=== PATIENT | female | born 1965 | race Caucasian/White ===

== ENCOUNTER 2019-07-03 14:11 | Observation (INO) ==
[2019-07-03] MEDS ORDERED: SODIUM CHLORIDE/NAHCO3/KCL/PEG 4,000 ML SOLN.RECON PO ONE (17:00)
[2019-07-03] MEDS: GlipiZIDE 5 MG TABLET PO SCH (17:31)
[2019-07-03] MEDS: *HR* OxyCODONE/APAP 7.5/325 TABLET PO PRN (17:40)
[2019-07-04 05:10] LABS: Basophils # 0.1 K/mcL (0.0-0.2); Basophils % 0.9 %; Eosinophils # 0.4 K/mcL (0.0-0.6); Eosinophils % 3.6 %; Hematocrit 31.7 % (35.3-44.9); Hemoglobin 9.6 g/dL (11.5-15.4); INR 1.3; Immature Granulocytes % 0.4 % (0-4); Lymphocytes # 1.4 K/mcL (0.6-4.6); Mean Corpuscular HGB Conc 30.3 g/dL (31.6-35.5); Mean Corpuscular Hemoglobin 26.2 pg (28.0-33.3); Mean Corpuscular Volume 86.4 fL (83.0-100.0); Monocytes # 0.7 K/mcL (0.0-1.3); Monocytes % 6.1 %; Neutrophils # 8.9 K/mcL (1.6-8.9); Platelet Count 529 K/mcL (140-400); Prothrombin Time 15.1 Seconds (9.4-12.1); Red Blood Count 3.67 M/mcL (3.82-4.97); Red Cell Distribution Width 19.2 % (11.5-14.5); White Blood Count 11.6 K/mcL (4.3-11.1)
[2019-07-04 05:24] LABS: Alanine Aminotransferase 14 Units/L (7-52); Albumin/Globulin Ratio 0.8 (1.1-2.2); Alkaline Phosphatase 135 Units/L (34-104); Aspartate Amino Transferase 11 Units/L (13-39); BUN/Creatinine Ratio 10 (6-26); Bilirubin,Total 0.4 mg/dL (0.3-1.0); Blood Urea Nitrogen 9 mg/dL (6-20); Calcium 8.7 mg/dL (8.6-10.3); Carbon Dioxide 24 mEq/L (23-29); Chloride 108 mEq/L (98-107); Globulin 3.9 g/dL (2.4-3.5); Glucose 135 mg/dL (70-105); Osmolality,Calculated 293 (280-300); Potassium 3.8 mEq/L (3.5-5.1); Sodium 141 mEq/L (136-145); Total Protein 6.9 g/dL (6.4-8.9); eGFR For African Americans > 60 (> 60); eGFR For Non-African Americans > 60 (> 60)
[2019-07-04] MEDS: *HR* OxyCODONE/APAP 7.5/325 TABLET PO PRN ×2 (08:46→17:11)
[2019-07-04] MEDS: GlipiZIDE 5 MG TABLET PO SCH ×2 (08:47→17:07)
[2019-07-04] MEDS: Loratadine 10 MG TABLET PO SCH (08:47)
[2019-07-04] MEDS: Folic Acid 1 MG TABLET PO SCH (08:47)
[2019-07-04] MEDS: Baclofen 10 MG TABLET PO SCH ×4 (08:47→21:15)
[2019-07-04] MEDS ORDERED: SODIUM CHLORIDE/NAHCO3/KCL/PEG 4,000 ML SOLN.RECON PO ONE (17:00)
[2019-07-05] MEDS: Loratadine 10 MG TABLET PO SCH (09:34)
[2019-07-05] MEDS: GlipiZIDE 5 MG TABLET PO SCH ×2 (09:35→16:55)
[2019-07-05] MEDS: Folic Acid 1 MG TABLET PO SCH (09:35)
[2019-07-05] MEDS: Baclofen 10 MG TABLET PO SCH ×3 (09:35→16:55)
[2019-07-05] MEDS ORDERED: Diltiazem CD (24hr) 240 MG CAPSULE PO SCH (11:00)
[2019-07-05] MEDS ORDERED: Propofol 500 MG/50 ML INFUS..BTL ONE (11:58)
[2019-07-05 14:01] VITALS: BP 131/82
[2019-07-05] MEDS: *HR* OxyCODONE/APAP 7.5/325 TABLET PO PRN (14:07)
== END 2019-07-05 19:21 | disposition home or self-care (01) ==
LOC: 3ANU
PROVIDERS: ADMIT Internal Medicine; ATTEND Internal Medicine
PROC: ENDOCBX (2019-07-05 12:00)
PROC: ENDOEBX (2019-07-05 12:00)

== ENCOUNTER 2019-09-11 15:41 | Inpatient (IN) ==
[2019-09-11] MEDS ORDERED: Acetaminophen 325 MG TABLET PO PRN (17:42)
[2019-09-11] MEDS ORDERED: Ondansetron 4 MG/2 ML VIAL IVP PRN (17:42)
[2019-09-11] MEDS ORDERED: Naloxone 0.4 MG/ML INJ IVP PRN (17:42)
[2019-09-11] MEDS ORDERED: Ipratropium/Albuterol Neb 3 ML IH PRN (17:44)
[2019-09-11] MEDS ORDERED: Dextrose Gel 15 GM/37.5 ML TUBE PO PRN ×2 (17:45)
[2019-09-11] MEDS ORDERED: *HR* Dextrose 50 % in Water (Syg) 50 ML SYRINGE IVP PRN (17:45)
[2019-09-11] MEDS ORDERED: D5% in Water 1,000 ML IVC PRN (17:45)
[2019-09-11] MEDS ORDERED: Azithromycin 500 MG in 0.9 % Sodium Chloride 250 ML IVPB SCH (18:00)
[2019-09-11] MEDS ORDERED: *HR* LORazepam 2 MG/ML VIAL IVP PRN (18:09)
[2019-09-11 18:38] LABS: Albumin 3.3 g/dL (3.5-5.7); Albumin/Globulin Ratio 0.8 (1.1-2.2); Bilirubin,Total 0.2 mg/dL (0.3-1.0); Chol/HDL Ratio 2.8 (0-4.9); Globulin 4.1 g/dL (2.4-3.5); Magnesium 2.3 mg/dL (1.6-2.6); Phosphorous 5.4 mg/dL (2.7-4.5); Potassium 3.8 mEq/L (3.5-5.1); Total Protein 7.4 g/dL (6.4-8.9)
[2019-09-11 18:39] LABS: Basophils # 0.1 K/mcL (0.0-0.2); Basophils % 0.4 %; Eosinophils # 0.3 K/mcL (0.0-0.6); Eosinophils % 1.9 %; Hematocrit 24.5 % (35.3-44.9); Hemoglobin 7.4 g/dL (11.5-15.4); Immature Granulocytes % 0.5 % (0-4); Lymphocytes # 1.9 K/mcL (0.6-4.6); Lymphocytes % 11.2 %; Mean Corpuscular HGB Conc 30.2 g/dL (31.6-35.5); Mean Corpuscular Hemoglobin 26.5 pg (28.0-33.3); Mean Corpuscular Volume 87.8 fL (83.0-100.0); Mean Platelet Volume 8.6 fL (9.4-12.4); Monocytes # 0.6 K/mcL (0.0-1.3); Monocytes % 3.6 %; Neutrophils # 13.6 K/mcL (1.6-8.9); Platelet Count 679 K/mcL (140-400); Red Blood Count 2.79 M/mcL (3.82-4.97); Red Cell Distribution Width 17.6 % (11.5-14.5); Segmented Neutrophils % 82.4 %; White Blood Count 16.5 K/mcL (4.3-11.1)
[2019-09-11 18:46] LABS: Activated Partial Thrombo Time 41.6 Seconds (26.0-36.0); INR 1.4; Prothrombin Time 15.9 Seconds (9.4-12.1)
[2019-09-11 19:04] LABS: Estimated Average Glucose 140 mg/dl
[2019-09-11] MEDS: 0.9 % Sodium Chloride 1,000 ML IVC SCH (20:53)
[2019-09-11] MEDS: Baclofen 10 MG TABLET PO SCH (20:55)
[2019-09-11] MEDS: *HR* OxyCODONE/APAP 7.5/325 TABLET PO PRN (20:55)
[2019-09-12] MEDS: *HR* OxyCODONE/APAP 7.5/325 TABLET PO PRN ×3 (04:29→21:15)
[2019-09-12 05:42] LABS: Bilirubin,Urine Negative (Negative); Blood,Urine Moderate (Negative); Clarity,Urine Turbid (Clear); Color,Urine Yellow (Yellow); Glucose,Urine (UA) Normal (Normal); Ketones,Urine Negative (Negative); Leukocyte Esterase,Urine Large (Negative); Nitrite,Urine Positive (Negative); Protein,Urine 30 mg/dL (Neg-Trace); Specific Gravity,Urine 1.005 (1.010-1.025); Urobilinogen,Urine Normal (Normal)
[2019-09-12 05:44] LABS: Bacteria,Urine Many per hpf (None-Few); Hyaline Casts,Urine Few per lpf (None-Few); RBC,Urine 0-3 per hpf (0-3); Squamous Epithelial Cell,Urine Many per lpf (None-Few); WBC,Urine TNTC per hpf (0-3)
[2019-09-12] MEDS ORDERED: Ampicillin/Sulbactam 1,500 MG in 0.9 % Sodium Chloride Mini Bag 100 ML IVPB SCH (07:26)
[2019-09-12 08:11] LABS: Basophils # 0.1 K/mcL (0.0-0.2); Basophils % 0.6 %; Eosinophils # 0.3 K/mcL (0.0-0.6); Eosinophils % 2.8 %; Hematocrit 23.7 % (35.3-44.9); Immature Granulocytes % 0.5 % (0-4); Lymphocytes # 2.9 K/mcL (0.6-4.6); Lymphocytes % 23.8 %; Mean Corpuscular HGB Conc 29.5 g/dL (31.6-35.5); Mean Corpuscular Hemoglobin 26.3 pg (28.0-33.3); Mean Corpuscular Volume 89.1 fL (83.0-100.0); Mean Platelet Volume 8.4 fL (9.4-12.4); Monocytes # 0.6 K/mcL (0.0-1.3); Monocytes % 4.6 %; Neutrophils # 8.3 K/mcL (1.6-8.9); Platelet Count 607 K/mcL (140-400); Red Blood Count 2.66 M/mcL (3.82-4.97); Red Cell Distribution Width 17.7 % (11.5-14.5); Segmented Neutrophils % 67.7 %; White Blood Count 12.3 K/mcL (4.3-11.1)
[2019-09-12] MEDS: Topiramate 25 MG TABLET PO SCH (08:26)
[2019-09-12] MEDS: Baclofen 10 MG TABLET PO SCH ×4 (08:26→22:08)
[2019-09-12] MEDS: Insulin LISPRO 300 UNITS/3 ML VIAL SQ SCH ×3 (08:27→19:35)
[2019-09-12] MEDS: DilTIAZem CD (24hr) 240 MG CAP.ER.24H PO SCH (08:27)
[2019-09-12 08:30] LABS: Calcium 8.5 mg/dL (8.6-10.3); Magnesium 2.2 mg/dL (1.6-2.6); Potassium 3.7 mEq/L (3.5-5.1)
[2019-09-12] MEDS ORDERED: cefTRIAXone 1,000 MG in Water for inj. (sterile) 10 ML IVP SCH (09:00)
[2019-09-12] MEDS ORDERED: Sennosides/Docusate Sodium TABLET PO PRN (12:19)
[2019-09-12] MEDS: 0.9 % Sodium Chloride 1,000 ML IVC SCH (13:22)
[2019-09-12 14:57] LABS: Hematocrit 25.2 % (35.3-44.9); Hemoglobin 7.6 g/dL (11.5-15.4)
[2019-09-12 15:25] LABS: Potassium,Urine 23.9 mEq/L; Sodium, Urine 67.8 mEq/L
[2019-09-12 15:33] LABS: Bilirubin,Urine Negative (Negative); Blood,Urine Large (Negative); Clarity,Urine Turbid (Clear); Color,Urine Yellow (Yellow); Glucose,Urine (UA) 100 mg/dL (Normal); Ketones,Urine Negative (Negative); Leukocyte Esterase,Urine Large (Negative); Nitrite,Urine Positive (Negative); Protein,Urine 100 mg/dL (Neg-Trace); Specific Gravity,Urine 1.014 (1.010-1.025); Urobilinogen,Urine Normal (Normal)
[2019-09-12 15:35] LABS: Bacteria,Urine Many per hpf (None-Few); RBC,Urine 30-50 per hpf (0-3); Squamous Epithelial Cell,Urine Many per lpf (None-Few); WBC,Urine TNTC per hpf (0-3)
[2019-09-12] MEDS ORDERED: *HR* Rivaroxaban 15 MG TABLET PO SCH (17:00)
[2019-09-12 17:16] LABS: Adenovirus Not Detected (Not Detect); Bordetella Pertussis Not Detected (Not Detect); Chlamydophila pneumoniae Not Detected (Not Detect); Coronavirus 229E Not Detected (Not Detect); Coronavirus HKU1 Not Detected (Not Detect); Coronavirus NL63 Not Detected (Not Detect); Coronavirus OC43 Not Detected (Not Detect); Human Metapneumovirus Not Detected (Not Detect); Human Rhinovirus/Enterovirus Not Detected (Not Detect); Influenza A Subtype 2009 H1 Not Detected (Not Detect); Influenza B Not Detected (Not Detect); Mycoplasma pneumoniae Not Detected (Not Detect); Parainfluenza Virus 1 Not Detected (Not Detect); Parainfluenza Virus 2 Not Detected (Not Detect); Parainfluenza Virus 3 Not Detected (Not Detect); Parainfluenza Virus 4 Not Detected (Not Detect); Respiratory Syncytial Virus Not Detected (Not Detect)
[2019-09-12] MEDS ORDERED: Insulin DETEMIR 100 UNIT/ML X5UNITS SQ SCH (21:00)
[2019-09-12 21:38] LABS: Hematocrit 25.4 % (35.3-44.9); Hemoglobin 7.7 g/dL (11.5-15.4)
[2019-09-12] MEDS: Benzonatate 100 MG CAPSULE PO SCH (22:09)
[2019-09-13 08:31] LABS: Red Cell Distribution Width 17.4 % (11.5-14.5)
[2019-09-13 08:33] LABS: Basophils # 0.1 K/mcL (0.0-0.2); Basophils % 0.7 %; Eosinophils # 0.1 K/mcL (0.0-0.6); Hematocrit 26.1 % (35.3-44.9); Hemoglobin 7.5 g/dL (11.5-15.4); Immature Granulocytes % 0.7 % (0-4); Lymphocytes % 9.5 %; Mean Corpuscular HGB Conc 28.7 g/dL (31.6-35.5); Mean Corpuscular Hemoglobin 26.8 pg (28.0-33.3); Mean Corpuscular Volume 93.2 fL (83.0-100.0); Mean Platelet Volume 8.4 fL (9.4-12.4); Monocytes # 0.2 K/mcL (0.0-1.3); Monocytes % 2.3 %; Platelet Count 539 K/mcL (140-400); Segmented Neutrophils % 85.8 %; White Blood Count 10.5 K/mcL (4.3-11.1)
[2019-09-13 08:48] LABS: Hypochromasia Present (Not Present)
[2019-09-13] MEDS: Baclofen 10 MG TABLET PO SCH ×3 (08:53→20:29)
[2019-09-13] MEDS: Topiramate 25 MG TABLET PO SCH (08:54)
[2019-09-13] MEDS: Insulin LISPRO 300 UNITS/3 ML VIAL SQ SCH ×2 (08:54→09:06)
[2019-09-13] MEDS: Benzonatate 100 MG CAPSULE PO SCH (08:54)
[2019-09-13] MEDS: DilTIAZem CD (24hr) 240 MG CAP.ER.24H PO SCH (08:54)
[2019-09-13] MEDS ORDERED: Folic Acid 1 MG TABLET PO SCH (09:00)
[2019-09-13] MEDS ORDERED: cefTRIAXone 1,000 MG in Water for inj. (sterile) 10 ML IVP SCH (09:00)
[2019-09-13] MEDS ORDERED: *HR* OxyCODONE/APAP 7.5/325 TABLET PO PRN ×2 (09:15→14:24)
[2019-09-13 09:19] LABS: Potassium 3.5 mEq/L (3.5-5.1)
[2019-09-13] MEDS ORDERED: *HR* LORazepam 2 MG/ML VIAL IM STA (10:31)
[2019-09-13] MEDS ORDERED: levETIRAcetam 1,000 MG in 0.9 % Sodium Chloride 100 ML IVPB ONE (10:32)
[2019-09-13] MEDS ORDERED: D5% in Lactated Ringers 1,000 ML IVC SCH ×3 (10:45→17:10)
[2019-09-13] MEDS ORDERED: D5% in 0.9% NACL 1,000 ML IVC SCH (10:45)
[2019-09-13] MEDS ORDERED: Insulin LISPRO 300 UNITS/3 ML VIAL SQ SCH ×2 (10:45→18:00)
[2019-09-13] MEDS ORDERED: Pantoprazole 40 MG VIAL IVP SCH (11:12)
[2019-09-13] MEDS ORDERED: 0.9 % Sodium Chloride 250 ML IVC SCH ×3 (11:15→17:15)
[2019-09-13 11:43] LABS: ABG Base Excess -1 mEq/L (-2 to 3); ABG HCO3 23 mEq/L (21-27); ABG Oxygen Saturation 98 % (95-98); ABG PCO2 33 mmHg (35-45); ABG PH 7.44 pH Units (7.32-7.45); ABG PO2 93 mmHg (85-104); ABG TCO2 24 mEq/L (20-26)
[2019-09-13] MEDS ORDERED: Ondansetron 4 MG/2 ML VIAL ONE ×2 (11:49→11:54)
[2019-09-13] MEDS ORDERED: Lidocaine -MPF 2% 2 ML VIAL ONE (11:49)
[2019-09-13] MEDS ORDERED: *HR* FentaNYL (PF) 100 MCG/2 ML VIAL ONE (11:49)
[2019-09-13] MEDS ORDERED: *HR* Rocuronium Bromide 50 MG/5 ML VIAL ONE (11:49)
[2019-09-13] MEDS ORDERED: *HR* Propofol 200 MG/20 ML VIAL IVP ONE (11:49)
[2019-09-13] MEDS ORDERED: Dexamethasone 4 MG/ML VIAL ONE (11:54)
[2019-09-13] MEDS ORDERED: Isovue-300 50ML VIAL ONE ×2 (12:33→12:49)
[2019-09-13] MEDS ORDERED: Benzonatate 100 MG CAPSULE PO PRN (14:42)
[2019-09-13] MEDS ORDERED: Sennosides/Docusate Sodium TABLET PO PRN (15:30)
[2019-09-13] MEDS ORDERED: Naloxone 0.4 MG/ML INJ IVP PRN (15:30)
[2019-09-13] MEDS ORDERED: Acetaminophen 325 MG TABLET PO PRN (15:30)
[2019-09-13] MEDS ORDERED: *HR* LORazepam 2 MG/ML VIAL IVP PRN (15:30)
[2019-09-13] MEDS ORDERED: Dextrose Gel 15 GM/37.5 ML TUBE PO PRN ×2 (15:30)
[2019-09-13] MEDS ORDERED: Ipratropium/Albuterol Neb 3 ML IH PRN (15:30)
[2019-09-13] MEDS ORDERED: Ondansetron 4 MG/2 ML VIAL IVP PRN (15:30)
[2019-09-13] MEDS ORDERED: D5% in Water 1,000 ML IVC PRN (15:30)
[2019-09-13] MEDS ORDERED: *HR* Dextrose 50 % in Water (Syg) 50 ML SYRINGE IVP PRN (15:30)
[2019-09-13 16:39] LABS: Basophils # 0.1 K/mcL (0.0-0.2); Basophils % 0.4 %; Eosinophils # 0.3 K/mcL (0.0-0.6); Eosinophils % 2.1 %; Hemoglobin 6.7 g/dL (11.5-15.4); Immature Granulocytes % 0.3 % (0-4); Lymphocytes # 1.8 K/mcL (0.6-4.6); Lymphocytes % 15.3 %; Mean Corpuscular HGB Conc 29.1 g/dL (31.6-35.5); Mean Corpuscular Hemoglobin 26.9 pg (28.0-33.3); Mean Corpuscular Volume 92.4 fL (83.0-100.0); Mean Platelet Volume 8.8 fL (9.4-12.4); Monocytes # 0.4 K/mcL (0.0-1.3); Monocytes % 3.6 %; Neutrophils # 9.1 K/mcL (1.6-8.9); Platelet Count 524 K/mcL (140-400); Red Blood Count 2.49 M/mcL (3.82-4.97); Red Cell Distribution Width 17.2 % (11.5-14.5); Segmented Neutrophils % 78.3 %; White Blood Count 11.7 K/mcL (4.3-11.1)
[2019-09-13 16:45] LABS: INR 1.3; Prothrombin Time 15.2 Seconds (9.4-12.1)
[2019-09-13] MEDS ORDERED: SODIUM CHLORIDE/NAHCO3/KCL/PEG 4,000 ML SOLN.RECON PO ONE (17:07)
[2019-09-13] MEDS ORDERED: 0.9 % Sodium Chloride 250 ML ONE (18:07)
[2019-09-13 19:03] LABS: ABG Base Excess 0 mEq/L (-2 to 3); ABG HCO3 24 mEq/L (21-27); ABG Oxygen Saturation 97 % (95-98); ABG PCO2 35 mmHg (35-45); ABG PH 7.44 pH Units (7.32-7.45); ABG PO2 87 mmHg (85-104); ABG TCO2 25 mEq/L (20-26)
[2019-09-13] MEDS: Pantoprazole 40 MG VIAL IVP SCH (20:12)
[2019-09-13] MEDS ORDERED: Insulin DETEMIR 100 UNIT/ML X5UNITS SQ SCH (21:00)
[2019-09-13 21:31] LABS: Hematocrit 28.1 % (35.3-44.9); Hemoglobin 8.8 g/dL (11.5-15.4)
[2019-09-14] MEDS ORDERED: Acetaminophen IV 1,000 MG/100 ML INFUS..BTL IVPB ONE (03:17)
[2019-09-14] MEDS ORDERED: *HR* LORazepam 2 MG/ML VIAL IVP STA (06:03)
[2019-09-14] MEDS ORDERED: *HR* LORazepam 2 MG/ML VIAL IVP ONE ×2 (06:06→06:34)
[2019-09-14 06:19] LABS: Hematocrit 31.6 % (35.3-44.9)
[2019-09-14] MEDS: Pantoprazole 40 MG VIAL IVP SCH (06:30)
[2019-09-14] MEDS ORDERED: levETIRAcetam 1,000 MG in 0.9 % Sodium Chloride 100 ML IVPB ONE (08:32)
[2019-09-14] MEDS ORDERED: DilTIAZem CD (24hr) 240 MG CAP.ER.24H PO SCH (09:00)
[2019-09-14] MEDS ORDERED: Topiramate 25 MG TABLET PO SCH (09:00)
[2019-09-14] MEDS ORDERED: cefTRIAXone 1,000 MG in 0.9 % Sodium Chloride Mini Bag 100 ML IVPB SCH (09:00)
[2019-09-14] MEDS ORDERED: Folic Acid 1 MG TABLET PO SCH (09:00)
[2019-09-14] MEDS ORDERED: Ringers Solution, Lactated 1,000 ML ONE (09:09)
[2019-09-14] MEDS ORDERED: Artificial Tears SOLN 15 ML BOTTLE BOTH EYES PRN (09:31)
[2019-09-14 09:33] LABS: Basophils # 0.1 K/mcL (0.0-0.2); Basophils % 0.7 %; Eosinophils # 0.3 K/mcL (0.0-0.6); Eosinophils % 2.3 %; Hemoglobin 9.9 g/dL (11.5-15.4); Immature Granulocytes % 0.5 % (0-4); Lymphocytes # 1.8 K/mcL (0.6-4.6); Lymphocytes % 15.2 %; Mean Corpuscular HGB Conc 31.9 g/dL (31.6-35.5); Mean Corpuscular Hemoglobin 27.8 pg (28.0-33.3); Mean Corpuscular Volume 87.1 fL (83.0-100.0); Mean Platelet Volume 8.4 fL (9.4-12.4); Monocytes # 0.5 K/mcL (0.0-1.3); Monocytes % 4.3 %; Neutrophils # 9.2 K/mcL (1.6-8.9); Platelet Count 553 K/mcL (140-400); Red Blood Count 3.56 M/mcL (3.82-4.97); Red Cell Distribution Width 16.7 % (11.5-14.5)
[2019-09-14 09:38] LABS: INR 1.3; Prothrombin Time 14.8 Seconds (9.4-12.1)
[2019-09-14 09:45] LABS: Albumin 3.2 g/dL (3.5-5.7); Albumin/Globulin Ratio 0.8 (1.1-2.2); Bilirubin,Total 0.4 mg/dL (0.3-1.0); Calcium 9.1 mg/dL (8.6-10.3); Globulin 4.2 g/dL (2.4-3.5); Magnesium 2.2 mg/dL (1.6-2.6); Potassium 3.4 mEq/L (3.5-5.1); Total Protein 7.4 g/dL (6.4-8.9)
[2019-09-14 10:35] LABS: ABG Base Excess 0 mEq/L (-2 to 3); ABG HCO3 23 mEq/L (21-27); ABG Oxygen Saturation 100 % (95-98); ABG PCO2 30 mmHg (35-45); ABG PO2 178 mmHg (85-104); ABG TCO2 24 mEq/L (20-26); Blood Gas Modality AF; Blood Gas VT 450 cc
[2019-09-14] MEDS ORDERED: Artificial Tears SOLN 15 ML BOTTLE BOTH EYES SCH (12:00)
[2019-09-14] MEDS ORDERED: Ipratropium/Albuterol Neb 3 ML IH SCH (12:00)
[2019-09-14] MEDS ORDERED: PHENYTOIN IVPB ONE (12:58)
[2019-09-14] MEDS ORDERED: LOK IVPB ONE (12:58)
[2019-09-14] MEDS ORDERED: cefTRIAXone 1,000 MG in Water for inj. (sterile) 10 ML IVP ONE (13:36)
[2019-09-14] MEDS ORDERED: FentaNYL (PF) 1,000 MCG in 0.9 % Sodium Chloride 80 ML IVC SCH (14:00)
[2019-09-14] MEDS ORDERED: *HR* Heparin 5,000 UNIT/ML VIAL SQ SCH (14:00)
[2019-09-14 15:14] VITALS: BP 123/57
[2019-09-14] MEDS ORDERED: *HR* Midazolam HCl 2 MG/2 ML VIAL IV ONE (15:49)
[2019-09-14] MEDS ORDERED: *HR* Etomidate 40 MG/20 ML VIAL IVP ONE (15:49)
[2019-09-14] MEDS ORDERED: *HR* Midazolam HCl 5 MG/5 ML VIAL IVP ONE (15:49)
[2019-09-14] MEDS ORDERED: *HR* Propofol 200 MG/20 ML VIAL IVP ONE (15:49)
[2019-09-14] MEDS ORDERED: Chlorhexidine Rinse 15 ML MOUTHWASH MM SCH (21:00)
[2019-09-14] MEDS ORDERED: LOK IVPB SCH (21:00)
[2019-09-14] MEDS ORDERED: PHENYTOIN IVPB SCH (21:00)
== END 2019-09-14 15:50 | disposition short-term general hospital (02) | DRG 466 ==
LOC: 3BNU → SUATTDRO 17:06 → 3BNU 17:17 → 2ANU 09-13 13:45 → ICNU 09-14 09:17
PROVIDERS: ADMIT Internal Medicine; ATTEND Internal Medicine

== ENCOUNTER 2020-02-02 23:40 | Inpatient (IN) ==
[2020-02-02] MEDS ORDERED: 0.9 % Sodium Chloride 1,000 ML IVC ONE (23:44)
[2020-02-03 01:36] LABS: Bilirubin,Urine Negative (Negative); Blood,Urine Large (Negative); Clarity,Urine Turbid (Clear); Color,Urine Yellow (Yellow); Glucose,Urine (UA) Normal (Normal); Ketones,Urine Negative (Negative); Leukocyte Esterase,Urine Large (Negative); Nitrite,Urine Negative (Negative); PH,Urine 7.5 pH Units (5.0-8.0); Protein,Urine 100 mg/dL (Neg-Trace); Specific Gravity,Urine 1.013 (1.010-1.025); Urobilinogen,Urine Normal (Normal)
[2020-02-03 01:38] LABS: Bacteria,Urine Many per hpf (None-Few); Hyaline Casts,Urine None Seen per lpf (None-Few); RBC,Urine 15-30 per hpf (0-3); Squamous Epithelial Cell,Urine Many per lpf (None-Few); WBC,Urine TNTC per hpf (0-3)
[2020-02-03] MEDS ORDERED: Piperacillin/Tazobactam 3.375 GM in Water for inj. (sterile) 20 ML IVP STA (01:52)
[2020-02-03 01:55] LABS: Basophils # 0.1 K/mcL (0.0-0.2); Basophils % 0.5 %; Eosinophils # 0.7 K/mcL (0.0-0.6); Eosinophils % 3.1 %; Hematocrit 31.8 % (35.3-44.9); Hemoglobin 9.4 g/dL (11.5-15.4); Immature Granulocytes % 0.6 % (0-4); Lymphocytes # 1.1 K/mcL (0.6-4.6); Lymphocytes % 4.8 %; Mean Corpuscular HGB Conc 29.6 g/dL (31.6-35.5); Mean Corpuscular Hemoglobin 24.7 pg (28.0-33.3); Mean Corpuscular Volume 83.7 fL (83.0-100.0); Mean Platelet Volume 9.7 fL (9.4-12.4); Monocytes # 0.6 K/mcL (0.0-1.3); Monocytes % 2.8 %; Neutrophils # 19.9 K/mcL (1.6-8.9); Platelet Count 683 K/mcL (140-400); Red Cell Distribution Width 17.2 % (11.5-14.5); Segmented Neutrophils % 88.2 %; White Blood Count 22.5 K/mcL (4.3-11.1)
[2020-02-03 02:14] LABS: Alanine Aminotransferase 14 Units/L (7-52); Albumin 3.2 g/dL (3.5-5.7); Albumin/Globulin Ratio 0.7 (1.1-2.2); Alkaline Phosphatase 176 Units/L (34-104); Amylase 13 Units/L (29-103); Aspartate Amino Transferase 12 Units/L (13-39); BUN/Creatinine Ratio 19 (6-26); Bilirubin,Direct 0.2 mg/dL (0.0-0.2); Bilirubin,Indirect 0.1 mg/dL (0.0-1.0); Bilirubin,Total 0.3 mg/dL (0.3-1.0); Blood Urea Nitrogen 31 mg/dL (6-20); Calcium 9.4 mg/dL (8.6-10.3); Carbon Dioxide 18 mEq/L (23-29); Chloride 98 mEq/L (98-107); Globulin 4.7 g/dL (2.4-3.5); Glucose 223 mg/dL (70-105); Lipase 31 Units/L (11-82); Osmolality,Calculated 285 (280-300); Potassium 4.3 mEq/L (3.5-5.1); Sodium 131 mEq/L (136-145); Total Protein 7.9 g/dL (6.4-8.9); Troponin I < 0.03 ng/mL (< 0.04); eGFR For African Americans 40 (> 60); eGFR For Non-African Americans 33 (> 60)
[2020-02-03] MEDS ORDERED: 0.9 % Sodium Chloride 1,000 ML IVC ONE (02:16)
[2020-02-03] MEDS: 0.9 % Sodium Chloride 1,000 ML IVC SCH (08:51)
[2020-02-03] MEDS: levETIRAcetam 250 MG TABLET PO SCH ×2 (10:18→21:10)
[2020-02-03] MEDS: Piperacillin/Tazobactam 3.375 GM in 0.9 % Sodium Chloride Mini Bag 100 ML IVPB SCH ×2 (10:19→19:03)
[2020-02-03] MEDS: *HR* OxyCODONE/APAP 7.5/325 TABLET PO PRN ×2 (10:19→17:16)
[2020-02-03] MEDS ORDERED: Insulin LISPRO 300 UNITS/3 ML VIAL SQ SCH (12:00)
[2020-02-03] MEDS: Acetaminophen 325 MG TABLET PO PRN (12:47)
[2020-02-03] MEDS: Insulin LISPRO 300 UNITS/3 ML VIAL SQ SCH ×2 (12:47→17:16)
[2020-02-03] MEDS: Vancomycin 1,500 MG/265 ML IV.SOLN IVPB SCH (14:54)
[2020-02-03] MEDS ORDERED: Sennosides/Docusate Sodium TABLET PO PRN (15:05)
[2020-02-03] MEDS ORDERED: polyethylene glycoL 3350 17 GM POWD.PACK PO PRN (15:05)
[2020-02-04] MEDS: 0.9 % Sodium Chloride 1,000 ML IVC SCH ×3 (00:47→18:39)
[2020-02-04 02:38] LABS: Basophils # 0.1 K/mcL (0.0-0.2); Basophils % 0.7 %; Eosinophils # 0.8 K/mcL (0.0-0.6); Eosinophils % 5.7 %; Hematocrit 26.5 % (35.3-44.9); Hemoglobin 7.9 g/dL (11.5-15.4); Immature Granulocytes % 0.5 % (0-4); Lymphocytes # 1.5 K/mcL (0.6-4.6); Mean Corpuscular HGB Conc 29.8 g/dL (31.6-35.5); Mean Corpuscular Hemoglobin 25.7 pg (28.0-33.3); Mean Corpuscular Volume 86.3 fL (83.0-100.0); Mean Platelet Volume 9.2 fL (9.4-12.4); Monocytes # 0.7 K/mcL (0.0-1.3); Monocytes % 5.1 %; Neutrophils # 10.2 K/mcL (1.6-8.9); Platelet Count 666 K/mcL (140-400); Red Blood Count 3.07 M/mcL (3.82-4.97); Red Cell Distribution Width 17.5 % (11.5-14.5); White Blood Count 13.2 K/mcL (4.3-11.1)
[2020-02-04 02:52] LABS: Calcium 8.5 mg/dL (8.6-10.3); Potassium 3.5 mEq/L (3.5-5.1)
[2020-02-04] MEDS: Piperacillin/Tazobactam 3.375 GM in 0.9 % Sodium Chloride Mini Bag 100 ML IVPB SCH ×3 (03:44→18:39)
[2020-02-04] MEDS: *HR* OxyCODONE/APAP 7.5/325 TABLET PO PRN ×3 (04:54→18:39)
[2020-02-04] MEDS: Insulin LISPRO 300 UNITS/3 ML VIAL SQ SCH ×3 (07:32→16:30)
[2020-02-04] MEDS: Acetaminophen 325 MG TABLET PO PRN (07:38)
[2020-02-04] MEDS: levETIRAcetam 250 MG TABLET PO SCH ×2 (07:38→22:46)
[2020-02-04 08:54] LABS: Estimated Average Glucose 163 mg/dl
[2020-02-04] MEDS: Vancomycin 1,500 MG/265 ML IV.SOLN IVPB SCH (15:17)
[2020-02-04] MEDS ORDERED: *HR* Propofol 200 MG/20 ML VIAL IVP ONE (16:24)
[2020-02-04] MEDS ORDERED: *HR* FentaNYL (PF) 100 MCG/2 ML VIAL ONE (16:24)
[2020-02-04] MEDS ORDERED: *HR* Midazolam HCl 2 MG/2 ML VIAL ONE (16:24)
[2020-02-04] MEDS ORDERED: Dexamethasone 4 MG/ML VIAL ONE (16:28)
[2020-02-04] MEDS ORDERED: Lidocaine -MPF 2% 2 ML VIAL ONE (16:28)
[2020-02-04] MEDS ORDERED: Ondansetron 4 MG/2 ML VIAL ONE (16:28)
[2020-02-04] MEDS ORDERED: Acetaminophen IV 1,000 MG/100 ML INFUS..BTL ONE (16:46)
[2020-02-04] MEDS ORDERED: Isovue-300 50ML VIAL ONE (17:06)
[2020-02-04 18:13] LABS: Acinetobacter baumannii by PCR Not Detected (Not Detect); Candida albicans by PCR Not Detected (Not Detect); Candida glabrata by PCR Not Detected (Not Detect); Candida krusei by PCR Not Detected (Not Detect); Candida parapsilosis by PCR Not Detected (Not Detect); Candida tropicalis by PCR Not Detected (Not Detect); Enterobacter cloacae Cmplx PCR Not Detected (Not Detect); Enterobacteriaceae by PCR Not Detected (Not Detect); Enterococcus by PCR Not Detected (Not Detect); Escherichia coli by PCR Not Detected (Not Detect); Klebsiella oxytoca by PCR Not Detected (Not Detect); Klebsiella pneumoniae by PCR Not Detected (Not Detect); Proteus by PCR Not Detected (Not Detect); Pseudomonas aeruginosa by PCR Not Detected (Not Detect); Serratia marcescens by PCR Not Detected (Not Detect); Staphylococcus aureus by PCR Not Detected (Not Detect); Staphylococcus by PCR DETECTED (Not Detect); Streptococcus agalactiae(B)PCR Not Detected (Not Detect); Streptococcus by PCR Not Detected (Not Detect); Streptococcus pneumoniae PCR Not Detected (Not Detect); Streptococcus pyogenes (A) PCR Not Detected (Not Detect); mecA Methicillin-Resist Gene DETECTED (Not Detect)
[2020-02-04] MEDS ORDERED: polyethylene glycoL 3350 17 GM POWD.PACK PO PRN (18:19)
[2020-02-04] MEDS ORDERED: Sennosides/Docusate Sodium TABLET PO PRN (18:19)
[2020-02-05 02:16] LABS: Basophils # 0.1 K/mcL (0.0-0.2); Basophils % 0.5 %; Eosinophils % 0.1 %; Hematocrit 25.8 % (35.3-44.9); Hemoglobin 7.6 g/dL (11.5-15.4); Immature Granulocytes % 0.7 % (0-4); Lymphocytes % 9.2 %; Mean Corpuscular HGB Conc 29.5 g/dL (31.6-35.5); Mean Corpuscular Hemoglobin 25.7 pg (28.0-33.3); Mean Corpuscular Volume 87.2 fL (83.0-100.0); Mean Platelet Volume 9.2 fL (9.4-12.4); Monocytes # 0.1 K/mcL (0.0-1.3); Monocytes % 0.7 %; Neutrophils # 9.9 K/mcL (1.6-8.9); Platelet Count 645 K/mcL (140-400); Red Blood Count 2.96 M/mcL (3.82-4.97); Red Cell Distribution Width 17.9 % (11.5-14.5); Segmented Neutrophils % 88.8 %; White Blood Count 11.1 K/mcL (4.3-11.1)
[2020-02-05] MEDS: Piperacillin/Tazobactam 3.375 GM in 0.9 % Sodium Chloride Mini Bag 100 ML IVPB SCH ×3 (03:05→18:12)
[2020-02-05 03:14] LABS: Folate > 22.3 ng/mL (3.0-16.0); Vitamin B12 > 1500 pg/mL (250-1100)
[2020-02-05 03:37] LABS: Calcium 8.5 mg/dL (8.6-10.3); Potassium 4.4 mEq/L (3.5-5.1)
[2020-02-05] MEDS: *HR* OxyCODONE/APAP 7.5/325 TABLET PO PRN ×2 (09:13→15:26)
[2020-02-05] MEDS: 0.9 % Sodium Chloride 1,000 ML IVC SCH (09:14)
[2020-02-05] MEDS: levETIRAcetam 250 MG TABLET PO SCH ×2 (09:14→21:41)
[2020-02-05] MEDS: Insulin LISPRO 300 UNITS/3 ML VIAL SQ SCH ×3 (09:17→16:45)
[2020-02-05] MEDS: Baclofen 10 MG TABLET PO SCH ×3 (10:42→21:42)
[2020-02-05] MEDS ORDERED: Vancomycin 1,500 MG/265 ML IV.SOLN IVPB SCH (14:00)
[2020-02-05] MEDS: *HR* Rivaroxaban 15 MG TABLET PO SCH (16:45)
[2020-02-06] MEDS: Piperacillin/Tazobactam 3.375 GM in 0.9 % Sodium Chloride Mini Bag 100 ML IVPB SCH ×3 (04:01→18:51)
[2020-02-06 05:22] LABS: Basophils # 0.1 K/mcL (0.0-0.2); Basophils % 0.7 %; Eosinophils # 0.4 K/mcL (0.0-0.6); Eosinophils % 3.4 %; Hematocrit 26.1 % (35.3-44.9); Hemoglobin 7.9 g/dL (11.5-15.4); Immature Granulocytes % 0.7 % (0-4); Lymphocytes # 3.3 K/mcL (0.6-4.6); Lymphocytes % 28.4 %; Mean Corpuscular HGB Conc 30.3 g/dL (31.6-35.5); Mean Corpuscular Hemoglobin 25.4 pg (28.0-33.3); Mean Corpuscular Volume 83.9 fL (83.0-100.0); Mean Platelet Volume 9.2 fL (9.4-12.4); Monocytes # 0.6 K/mcL (0.0-1.3); Monocytes % 5.1 %; Neutrophils # 7.1 K/mcL (1.6-8.9); Platelet Count 722 K/mcL (140-400); Red Blood Count 3.11 M/mcL (3.82-4.97); Red Cell Distribution Width 17.9 % (11.5-14.5); Segmented Neutrophils % 61.7 %; White Blood Count 11.5 K/mcL (4.3-11.1)
[2020-02-06 05:35] LABS: Calcium 8.5 mg/dL (8.6-10.3); Potassium 3.6 mEq/L (3.5-5.1)
[2020-02-06] MEDS ORDERED: *HR* HYDROmorphone (PF) 1 MG/ML SYRINGE IVP ONE (05:58)
[2020-02-06] MEDS: DilTIAZem CD (24hr) 300 MG CAP.ER.24H PO SCH (08:12)
[2020-02-06] MEDS: levETIRAcetam 250 MG TABLET PO SCH ×2 (08:13→21:44)
[2020-02-06] MEDS: Baclofen 10 MG TABLET PO SCH ×3 (08:13→21:44)
[2020-02-06] MEDS: Insulin LISPRO 300 UNITS/3 ML VIAL SQ SCH ×4 (08:14→21:38)
[2020-02-06] MEDS: *HR* OxyCODONE/APAP 7.5/325 TABLET PO PRN ×2 (11:04→18:59)
[2020-02-06] MEDS: Acetaminophen 325 MG TABLET PO PRN (17:27)
[2020-02-06] MEDS ORDERED: *HR* Dextrose 50 % in Water (Vial) 50 ML VIAL IVP PRN (18:02)
[2020-02-06] MEDS ORDERED: D5% in Water 1,000 ML IVC PRN (18:02)
[2020-02-06] MEDS ORDERED: Dextrose Gel 15 GM/37.5 ML TUBE PO PRN ×2 (18:02)
[2020-02-06] MEDS: Insulin DETEMIR 100 UNIT/ML X5UNITS SQ SCH (21:39)
[2020-02-07 02:05] LABS: Basophils # 0.1 K/mcL (0.0-0.2); Basophils % 0.8 %; Eosinophils # 0.5 K/mcL (0.0-0.6); Hematocrit 28.5 % (35.3-44.9); Hemoglobin 8.6 g/dL (11.5-15.4); Immature Granulocytes % 0.8 % (0-4); Lymphocytes # 2.6 K/mcL (0.6-4.6); Lymphocytes % 19.5 %; Mean Corpuscular HGB Conc 30.2 g/dL (31.6-35.5); Mean Corpuscular Hemoglobin 25.7 pg (28.0-33.3); Mean Corpuscular Volume 85.1 fL (83.0-100.0); Monocytes # 0.7 K/mcL (0.0-1.3); Monocytes % 5.5 %; Neutrophils # 9.2 K/mcL (1.6-8.9); Platelet Count 714 K/mcL (140-400); Red Blood Count 3.35 M/mcL (3.82-4.97); Red Cell Distribution Width 18.2 % (11.5-14.5); Segmented Neutrophils % 69.4 %; White Blood Count 13.2 K/mcL (4.3-11.1)
[2020-02-07 02:14] LABS: Calcium 8.2 mg/dL (8.6-10.3); Potassium 3.9 mEq/L (3.5-5.1)
[2020-02-07] MEDS: Piperacillin/Tazobactam 3.375 GM in 0.9 % Sodium Chloride Mini Bag 100 ML IVPB SCH ×3 (02:54→17:49)
[2020-02-07] MEDS: *HR* OxyCODONE/APAP 7.5/325 TABLET PO PRN ×3 (03:05→21:02)
[2020-02-07] MEDS: Insulin LISPRO 300 UNITS/3 ML VIAL SQ SCH ×4 (07:42→20:59)
[2020-02-07] MEDS: levETIRAcetam 250 MG TABLET PO SCH ×2 (07:42→21:03)
[2020-02-07] MEDS: Baclofen 10 MG TABLET PO SCH ×3 (07:42→21:03)
[2020-02-07] MEDS: DilTIAZem CD (24hr) 300 MG CAP.ER.24H PO SCH (07:42)
[2020-02-07] MEDS ORDERED: Doxycycline 100 MG CAPSULE PO ONE (17:10)
[2020-02-07] MEDS: *HR* Rivaroxaban 15 MG TABLET PO SCH (17:20)
[2020-02-07] MEDS: Acetaminophen 325 MG TABLET PO PRN (17:20)
[2020-02-07] MEDS: Insulin DETEMIR 100 UNIT/ML X5UNITS SQ SCH (21:03)
[2020-02-08] MEDS ORDERED: Simethicone 80 MG TAB.CHEW PO PRN (02:12)
[2020-02-08] MEDS: Piperacillin/Tazobactam 3.375 GM in 0.9 % Sodium Chloride Mini Bag 100 ML IVPB SCH (02:34)
[2020-02-08] MEDS: *HR* OxyCODONE/APAP 7.5/325 TABLET PO PRN (06:19)
[2020-02-08] MEDS ORDERED: Doxycycline 100 MG CAPSULE PO ONE (07:18)
[2020-02-08 07:26] VITALS: BP 122/74
[2020-02-08] MEDS: DilTIAZem CD (24hr) 300 MG CAP.ER.24H PO SCH (07:49)
[2020-02-08] MEDS: Baclofen 10 MG TABLET PO SCH (07:49)
[2020-02-08] MEDS: Insulin LISPRO 300 UNITS/3 ML VIAL SQ SCH (07:50)
[2020-02-08] MEDS: levETIRAcetam 250 MG TABLET PO SCH (07:50)
== END 2020-02-08 13:00 | DRG 951 ==
LOC: 2ANU 23:40 → EMEROOARM 23:40 → 2ANU 02-03 05:54 → SUATTDRO 02-04 14:40
PROVIDERS: ADMIT Family Medicine; ATTEND Internal Medicine

== ENCOUNTER 2020-04-08 15:45 | Inpatient (IN) ==
[2020-04-08] MEDS ORDERED: Isovue-370 500 ML BOTTLE IVP ONE (16:01)
[2020-04-08] MEDS ORDERED: Piperacillin/Tazobactam 3.375 GM in 0.9 % Sodium Chloride Mini Bag 100 ML IVPB ONE (16:02)
[2020-04-08] MEDS ORDERED: Vancomycin 1,500 MG/265 ML IV.SOLN IVPB ONE (16:53)
[2020-04-08 17:02] LABS: Basophils # 0.1 K/mcL (0.0-0.2); Basophils % 0.4 %; Eosinophils # 0.2 K/mcL (0.0-0.6); Eosinophils % 1.3 %; Hematocrit 27.2 % (35.3-44.9); Hemoglobin 8.2 g/dL (11.5-15.4); Immature Granulocytes % 0.7 % (0-4); Lymphocytes # 1.6 K/mcL (0.6-4.6); Lymphocytes % 9.6 %; Mean Corpuscular HGB Conc 30.1 g/dL (31.6-35.5); Mean Corpuscular Hemoglobin 23.4 pg (28.0-33.3); Mean Corpuscular Volume 77.7 fL (83.0-100.0); Mean Platelet Volume 9.4 fL (9.4-12.4); Monocytes # 1.4 K/mcL (0.0-1.3); Monocytes % 7.9 %; Neutrophils # 13.7 K/mcL (1.6-8.9); Platelet Count 573 K/mcL (140-400); Red Cell Distribution Width 17.6 % (11.5-14.5); Segmented Neutrophils % 80.1 %
[2020-04-08 17:09] LABS: Prothrombin Time 22.8 Seconds (9.4-12.1)
[2020-04-08 17:18] LABS: Alanine Aminotransferase 13 Units/L (7-52); Albumin 3.1 g/dL (3.5-5.7); Albumin/Globulin Ratio 0.8 (1.1-2.2); Alkaline Phosphatase 173 Units/L (34-104); Aspartate Amino Transferase 11 Units/L (13-39); BUN/Creatinine Ratio 19 (6-26); Bilirubin,Total 0.5 mg/dL (0.3-1.0); Blood Urea Nitrogen 20 mg/dL (6-20); Calcium 8.8 mg/dL (8.6-10.3); Carbon Dioxide 23 mEq/L (23-29); Chloride 97 mEq/L (98-107); Globulin 3.9 g/dL (2.4-3.5); Glucose 184 mg/dL (70-105); Osmolality,Calculated 279 (280-300); Potassium 3.4 mEq/L (3.5-5.1); Sodium 131 mEq/L (136-145); eGFR For African Americans > 60 (> 60); eGFR For Non-African Americans 54 (> 60)
[2020-04-08 20:50] LABS: Adenovirus Not Detected (Not Detect); Coronavirus 229E Not Detected (Not Detect); Coronavirus HKU1 Not Detected (Not Detect); Coronavirus NL63 Not Detected (Not Detect); Coronavirus OC43 Not Detected (Not Detect)
[2020-04-08 20:53] LABS: Bordetella Pertussis Not Detected (Not Detect); Human Metapneumovirus Not Detected (Not Detect); Human Rhinovirus/Enterovirus Not Detected (Not Detect); Influenza A Subtype 2009 H1 Not Detected (Not Detect); Influenza B Not Detected (Not Detect); Parainfluenza Virus 1 Not Detected (Not Detect); Parainfluenza Virus 2 Not Detected (Not Detect); Parainfluenza Virus 3 Not Detected (Not Detect); Parainfluenza Virus 4 Not Detected (Not Detect); Respiratory Syncytial Virus Not Detected (Not Detect); SARS-CoV-2 DETECTED (Not Detect)
[2020-04-08 20:54] LABS: Chlamydophila pneumoniae Not Detected (Not Detect); Mycoplasma pneumoniae Not Detected (Not Detect)
[2020-04-08 21:07] LABS: C-Reactive Protein 160 mg/L (Less than 10); Magnesium 1.7 mg/dL (1.6-2.6); Phosphorous 3.6 mg/dL (2.7-4.5)
[2020-04-08] MEDS ORDERED: Ondansetron 4 MG/2 ML VIAL IVP PRN (22:28)
[2020-04-08] MEDS ORDERED: Naloxone 0.4 MG/ML INJ IVP PRN (22:28)
[2020-04-09] MEDS: Baclofen 10 MG TABLET PO SCH ×4 (02:04→20:46)
[2020-04-09] MEDS: Melatonin 3 MG TABLET PO PRN (02:05)
[2020-04-09] MEDS ORDERED: *HR* Dextrose 50 % in Water (Vial) 50 ML VIAL IVP PRN (02:25)
[2020-04-09] MEDS ORDERED: D5% in Water 1,000 ML IVC PRN (02:25)
[2020-04-09] MEDS ORDERED: Dextrose Gel 15 GM/37.5 ML TUBE PO PRN ×2 (02:25)
[2020-04-09] MEDS ORDERED: Potassium Chloride 40 MEQ, Lidocaine 1% 2 ML in 0.9 % Sodium Chloride 500 ML IVPB ONE (02:36)
[2020-04-09 03:17] LABS: Hematocrit 25.6 % (35.3-44.9); Hemoglobin 7.7 g/dL (11.5-15.4); Mean Corpuscular HGB Conc 30.1 g/dL (31.6-35.5); Mean Corpuscular Hemoglobin 23.5 pg (28.0-33.3); Mean Corpuscular Volume 78.3 fL (83.0-100.0); Mean Platelet Volume 9.3 fL (9.4-12.4); Platelet Count 534 K/mcL (140-400); Red Blood Count 3.27 M/mcL (3.82-4.97); Red Cell Distribution Width 17.5 % (11.5-14.5); White Blood Count 14.6 K/mcL (4.3-11.1)
[2020-04-09 03:20] LABS: INR 1.5; Prothrombin Time 17.1 Seconds (9.4-12.1)
[2020-04-09 03:35] LABS: Alanine Aminotransferase 12 Units/L (7-52); Albumin 2.8 g/dL (3.5-5.7); Albumin/Globulin Ratio 0.8 (1.1-2.2); Alkaline Phosphatase 152 Units/L (34-104); Aspartate Amino Transferase 12 Units/L (13-39); BUN/Creatinine Ratio 19 (6-26); Bilirubin,Total 0.5 mg/dL (0.3-1.0); Blood Urea Nitrogen 19 mg/dL (6-20); Calcium 8.6 mg/dL (8.6-10.3); Carbon Dioxide 21 mEq/L (23-29); Chloride 101 mEq/L (98-107); Globulin 3.6 g/dL (2.4-3.5); Glucose 141 mg/dL (70-105); Osmolality,Calculated 281 (280-300); Sodium 133 mEq/L (136-145); Total Protein 6.4 g/dL (6.4-8.9); eGFR For African Americans > 60 (> 60); eGFR For Non-African Americans 58 (> 60)
[2020-04-09] MEDS: Insulin LISPRO 300 UNITS/3 ML VIAL SQ SCH ×4 (07:04→20:57)
[2020-04-09] MEDS: Piperacillin/Tazobactam 3.375 GM in 0.9 % Sodium Chloride Mini Bag 100 ML IVPB SCH ×3 (08:28→23:56)
[2020-04-09 08:43] LABS: Acinetobacter baumannii by PCR Not Detected (Not Detect); Candida albicans by PCR Not Detected (Not Detect); Candida glabrata by PCR Not Detected (Not Detect); Candida krusei by PCR Not Detected (Not Detect); Candida parapsilosis by PCR Not Detected (Not Detect); Candida tropicalis by PCR Not Detected (Not Detect); Enterobacter cloacae Cmplx PCR Not Detected (Not Detect); Enterococcus by PCR Not Detected (Not Detect); Escherichia coli by PCR DETECTED (Not Detect); Klebsiella oxytoca by PCR Not Detected (Not Detect); Klebsiella pneumoniae by PCR Not Detected (Not Detect); Proteus by PCR Not Detected (Not Detect); Pseudomonas aeruginosa by PCR Not Detected (Not Detect); Serratia marcescens by PCR Not Detected (Not Detect); Staphylococcus aureus by PCR Not Detected (Not Detect); Staphylococcus by PCR Not Detected (Not Detect); Streptococcus agalactiae(B)PCR Not Detected (Not Detect); Streptococcus by PCR Not Detected (Not Detect); Streptococcus pneumoniae PCR Not Detected (Not Detect); Streptococcus pyogenes (A) PCR Not Detected (Not Detect); blaKPC Carbapenem-Resist Gene Not Detected (Not Detect)
[2020-04-09] MEDS ORDERED: Dexamethasone 4 MG/ML VIAL IVP SCH (09:00)
[2020-04-09] MEDS ORDERED: Sennosides/Docusate Sodium TABLET PO PRN (10:29)
[2020-04-09] MEDS ORDERED: Albuterol 2.5 MG/3 ML NEBULIZER IH PRN (10:29)
[2020-04-09] MEDS ORDERED: Potassium Chloride Elixir 20 MEQ/15 ML UDC PO ONE (10:53)
[2020-04-09] MEDS: DilTIAZem CD (24hr) 240 MG CAP.ER.24H PO SCH (12:37)
[2020-04-09] MEDS: levETIRAcetam 250 MG TABLET PO SCH ×2 (12:37→20:46)
[2020-04-09] MEDS ORDERED: Furosemide 40 MG TABLET PO SCH (17:00)
[2020-04-09] MEDS: Vancomycin 1,500 MG/265 ML IV.SOLN IVPB SCH (17:59)
[2020-04-09] MEDS: Simethicone 80 MG TAB.CHEW PO SCH (20:45)
[2020-04-10 06:24] LABS: Basophils % 0.2 %; Hematocrit 26.2 % (35.3-44.9); Hemoglobin 7.8 g/dL (11.5-15.4); Immature Granulocytes % 0.7 % (0-4); Lymphocytes # 1.1 K/mcL (0.6-4.6); Lymphocytes % 7.4 %; Mean Corpuscular HGB Conc 29.8 g/dL (31.6-35.5); Mean Corpuscular Hemoglobin 23.6 pg (28.0-33.3); Mean Corpuscular Volume 79.2 fL (83.0-100.0); Mean Platelet Volume 9.9 fL (9.4-12.4); Monocytes # 0.6 K/mcL (0.0-1.3); Monocytes % 4.2 %; Neutrophils # 13.2 K/mcL (1.6-8.9); Nucleated Red Blood Cells 0.1 /100 WBC (0); Platelet Count 649 K/mcL (140-400); Red Blood Count 3.31 M/mcL (3.82-4.97); Red Cell Distribution Width 17.9 % (11.5-14.5); Segmented Neutrophils % 87.5 %; White Blood Count 15.1 K/mcL (4.3-11.1)
[2020-04-10 06:47] LABS: Potassium 4.1 mEq/L (3.5-5.1)
[2020-04-10] MEDS: Vancomycin 1,500 MG/265 ML IV.SOLN IVPB SCH (06:49)
[2020-04-10] MEDS ORDERED: 0.9 % Sodium Chloride 1,000 ML IVC SCH (07:30)
[2020-04-10] MEDS ORDERED: Insulin DETEMIR 100 UNIT/ML X5UNITS SQ ONE (08:38)
[2020-04-10] MEDS: Piperacillin/Tazobactam 3.375 GM in 0.9 % Sodium Chloride Mini Bag 100 ML IVPB SCH ×3 (08:42→23:15)
[2020-04-10] MEDS: Folic Acid 1 MG TABLET PO SCH (08:43)
[2020-04-10] MEDS: levETIRAcetam 250 MG TABLET PO SCH ×2 (08:43→20:17)
[2020-04-10] MEDS: Baclofen 10 MG TABLET PO SCH ×3 (08:43→20:17)
[2020-04-10] MEDS: Simethicone 80 MG TAB.CHEW PO SCH ×3 (08:43→20:50)
[2020-04-10] MEDS: Loratadine 10 MG TABLET PO SCH (08:44)
[2020-04-10] MEDS: DilTIAZem CD (24hr) 240 MG CAP.ER.24H PO SCH (08:44)
[2020-04-10] MEDS: Cholecalciferol (D-3) 1,000 UNIT (25MCG) TABLET PO SCH (08:44)
[2020-04-10] MEDS: Insulin LISPRO 300 UNITS/3 ML VIAL SQ SCH ×4 (08:52→22:37)
[2020-04-10] MEDS: Gentamicin Oint 15 GM TUBE TP SCH (12:06)
[2020-04-10] MEDS: *HR* Rivaroxaban 15 MG TABLET PO SCH (16:58)
[2020-04-11 03:00] LABS: Basophils % 0.3 %; Eosinophils # 0.3 K/mcL (0.0-0.6); Eosinophils % 2.3 %; Hematocrit 24.4 % (35.3-44.9); Hemoglobin 7.1 g/dL (11.5-15.4); Lymphocytes # 2.3 K/mcL (0.6-4.6); Lymphocytes % 16.5 %; Mean Corpuscular HGB Conc 29.1 g/dL (31.6-35.5); Mean Corpuscular Hemoglobin 24.1 pg (28.0-33.3); Mean Platelet Volume 9.9 fL (9.4-12.4); Monocytes # 0.9 K/mcL (0.0-1.3); Monocytes % 6.5 %; Platelet Count 685 K/mcL (140-400); Red Blood Count 2.94 M/mcL (3.82-4.97); Red Cell Distribution Width 17.8 % (11.5-14.5); Segmented Neutrophils % 73.4 %; White Blood Count 13.7 K/mcL (4.3-11.1)
[2020-04-11 03:21] LABS: Calcium 8.5 mg/dL (8.6-10.3); Potassium 3.7 mEq/L (3.5-5.1)
[2020-04-11] MEDS: Insulin LISPRO 300 UNITS/3 ML VIAL SQ SCH ×4 (09:02→22:03)
[2020-04-11] MEDS: levETIRAcetam 250 MG TABLET PO SCH ×2 (09:03→20:08)
[2020-04-11] MEDS: Cholecalciferol (D-3) 1,000 UNIT (25MCG) TABLET PO SCH (09:03)
[2020-04-11] MEDS: Baclofen 10 MG TABLET PO SCH ×3 (09:03→20:08)
[2020-04-11] MEDS: DilTIAZem CD (24hr) 240 MG CAP.ER.24H PO SCH (09:04)
[2020-04-11] MEDS: Folic Acid 1 MG TABLET PO SCH (09:04)
[2020-04-11] MEDS: Loratadine 10 MG TABLET PO SCH (09:04)
[2020-04-11] MEDS: Piperacillin/Tazobactam 3.375 GM in 0.9 % Sodium Chloride Mini Bag 100 ML IVPB SCH ×3 (09:06→23:57)
[2020-04-11] MEDS: Simethicone 80 MG TAB.CHEW PO SCH ×2 (09:53→20:08)
[2020-04-11] MEDS: 0.9 % Sodium Chloride 1,000 ML IVC SCH ×2 (13:31→20:07)
[2020-04-11] MEDS: *HR* OxyCODONE/APAP 7.5/325 TABLET PO SCH ×2 (13:35→20:09)
[2020-04-11] MEDS: Gentamicin Oint 15 GM TUBE TP SCH (16:26)
[2020-04-11] MEDS: *HR* Rivaroxaban 15 MG TABLET PO SCH (16:59)
[2020-04-12] MEDS: Acetaminophen 325 MG TABLET PO PRN (02:20)
[2020-04-12] MEDS: Melatonin 3 MG TABLET PO PRN (02:20)
[2020-04-12 05:30] LABS: Basophils # 0.1 K/mcL (0.0-0.2); Basophils % 0.6 %; Eosinophils # 0.4 K/mcL (0.0-0.6); Eosinophils % 3.3 %; Hematocrit 22.2 % (35.3-44.9); Hemoglobin 6.6 g/dL (11.5-15.4); Immature Granulocytes % 1.4 % (0-4); Lymphocytes # 2.1 K/mcL (0.6-4.6); Lymphocytes % 18.8 %; Mean Corpuscular HGB Conc 29.7 g/dL (31.6-35.5); Mean Corpuscular Hemoglobin 23.4 pg (28.0-33.3); Mean Corpuscular Volume 78.7 fL (83.0-100.0); Monocytes # 0.8 K/mcL (0.0-1.3); Monocytes % 7.2 %; Neutrophils # 7.6 K/mcL (1.6-8.9); Platelet Count 733 K/mcL (140-400); Red Blood Count 2.82 M/mcL (3.82-4.97); Red Cell Distribution Width 17.8 % (11.5-14.5); Segmented Neutrophils % 68.7 %; White Blood Count 11.1 K/mcL (4.3-11.1)
[2020-04-12 05:44] LABS: Calcium 8.2 mg/dL (8.6-10.3); Potassium 3.5 mEq/L (3.5-5.1)
[2020-04-12] MEDS: 0.9 % Sodium Chloride 1,000 ML IVC SCH (06:12)
[2020-04-12 07:16] LABS: Hematocrit 23.2 % (35.3-44.9); Hemoglobin 6.9 g/dL (11.5-15.4)
[2020-04-12] MEDS: Cholecalciferol (D-3) 1,000 UNIT (25MCG) TABLET PO SCH (07:38)
[2020-04-12] MEDS: Baclofen 10 MG TABLET PO SCH ×3 (07:38→21:10)
[2020-04-12] MEDS: Folic Acid 1 MG TABLET PO SCH (07:39)
[2020-04-12] MEDS: Loratadine 10 MG TABLET PO SCH (07:39)
[2020-04-12] MEDS: DilTIAZem CD (24hr) 240 MG CAP.ER.24H PO SCH (07:39)
[2020-04-12] MEDS: Piperacillin/Tazobactam 3.375 GM in 0.9 % Sodium Chloride Mini Bag 100 ML IVPB SCH ×3 (07:39→23:48)
[2020-04-12] MEDS: Simethicone 80 MG TAB.CHEW PO SCH ×2 (07:39→21:10)
[2020-04-12] MEDS: *HR* OxyCODONE/APAP 7.5/325 TABLET PO SCH ×3 (07:39→21:11)
[2020-04-12] MEDS: levETIRAcetam 250 MG TABLET PO SCH ×2 (07:39→21:11)
[2020-04-12] MEDS: Insulin LISPRO 300 UNITS/3 ML VIAL SQ SCH ×4 (08:11→21:39)
[2020-04-12] MEDS ORDERED: 0.9 % Sodium Chloride 250 ML ONE (09:16)
[2020-04-12] MEDS: *HR* Rivaroxaban 15 MG TABLET PO SCH (16:20)
[2020-04-12] MEDS: Gentamicin Oint 15 GM TUBE TP SCH (16:56)
[2020-04-12 20:08] LABS: Hematocrit 26.5 % (35.3-44.9)
[2020-04-13 02:24] LABS: Basophils # 0.1 K/mcL (0.0-0.2); Eosinophils # 0.4 K/mcL (0.0-0.6); Eosinophils % 4.2 %; Hematocrit 26.4 % (35.3-44.9); Hemoglobin 7.9 g/dL (11.5-15.4); Immature Granulocytes % 1.5 % (0-4); Lymphocytes # 2.5 K/mcL (0.6-4.6); Lymphocytes % 24.3 %; Mean Corpuscular HGB Conc 29.9 g/dL (31.6-35.5); Mean Corpuscular Hemoglobin 24.6 pg (28.0-33.3); Mean Corpuscular Volume 82.2 fL (83.0-100.0); Mean Platelet Volume 9.1 fL (9.4-12.4); Monocytes # 0.6 K/mcL (0.0-1.3); Monocytes % 5.4 %; Neutrophils # 6.7 K/mcL (1.6-8.9); Platelet Count 776 K/mcL (140-400); Red Blood Count 3.21 M/mcL (3.82-4.97); Red Cell Distribution Width 18.3 % (11.5-14.5); Segmented Neutrophils % 63.6 %; White Blood Count 10.5 K/mcL (4.3-11.1)
[2020-04-13 02:26] LABS: D-Dimer 528 ng/mLFEU (0-500); Fibrinogen 948 mg/dL (169-393)
[2020-04-13 02:44] LABS: Calcium 8.7 mg/dL (8.6-10.3); Potassium 3.8 mEq/L (3.5-5.1)
[2020-04-13] MEDS: Acetaminophen 325 MG TABLET PO PRN (04:04)
[2020-04-13] MEDS: Gentamicin Oint 15 GM TUBE TP SCH (05:06)
[2020-04-13] MEDS: Insulin LISPRO 300 UNITS/3 ML VIAL SQ SCH ×4 (07:21→20:16)
[2020-04-13] MEDS: Loratadine 10 MG TABLET PO SCH (08:57)
[2020-04-13] MEDS: Piperacillin/Tazobactam 3.375 GM in 0.9 % Sodium Chloride Mini Bag 100 ML IVPB SCH ×2 (08:57→16:10)
[2020-04-13] MEDS: Baclofen 10 MG TABLET PO SCH ×3 (08:57→20:22)
[2020-04-13] MEDS: Cholecalciferol (D-3) 1,000 UNIT (25MCG) TABLET PO SCH (08:58)
[2020-04-13] MEDS: levETIRAcetam 250 MG TABLET PO SCH ×2 (08:58→20:23)
[2020-04-13] MEDS: DilTIAZem CD (24hr) 240 MG CAP.ER.24H PO SCH (08:58)
[2020-04-13] MEDS: *HR* OxyCODONE/APAP 7.5/325 TABLET PO SCH ×3 (08:58→20:24)
[2020-04-13] MEDS: Folic Acid 1 MG TABLET PO SCH (08:58)
[2020-04-13] MEDS: Simethicone 80 MG TAB.CHEW PO SCH ×2 (08:59→23:38)
[2020-04-13] MEDS: *HR* Rivaroxaban 15 MG TABLET PO SCH (16:38)
[2020-04-14] MEDS: Piperacillin/Tazobactam 3.375 GM in 0.9 % Sodium Chloride Mini Bag 100 ML IVPB SCH ×2 (00:06→10:10)
[2020-04-14 04:49] LABS: Basophils # 0.1 K/mcL (0.0-0.2); Basophils % 0.6 %; Eosinophils # 0.5 K/mcL (0.0-0.6); Eosinophils % 3.5 %; Hematocrit 27.9 % (35.3-44.9); Hemoglobin 8.3 g/dL (11.5-15.4); Immature Granulocytes % 0.9 % (0-4); Lymphocytes # 2.1 K/mcL (0.6-4.6); Lymphocytes % 15.8 %; Mean Corpuscular HGB Conc 29.7 g/dL (31.6-35.5); Mean Corpuscular Hemoglobin 24.5 pg (28.0-33.3); Mean Corpuscular Volume 82.3 fL (83.0-100.0); Mean Platelet Volume 8.9 fL (9.4-12.4); Monocytes # 0.6 K/mcL (0.0-1.3); Monocytes % 4.6 %; Neutrophils # 10.1 K/mcL (1.6-8.9); Platelet Count 792 K/mcL (140-400); Red Blood Count 3.39 M/mcL (3.82-4.97); Red Cell Distribution Width 19.1 % (11.5-14.5); Segmented Neutrophils % 74.6 %; White Blood Count 13.5 K/mcL (4.3-11.1)
[2020-04-14 05:02] LABS: BUN/Creatinine Ratio 18 (6-26); Blood Urea Nitrogen 19 mg/dL (6-20); Calcium 8.7 mg/dL (8.6-10.3); Carbon Dioxide 23 mEq/L (23-29); Chloride 106 mEq/L (98-107); Glucose 155 mg/dL (70-105); Osmolality,Calculated 293 (280-300); Potassium 3.8 mEq/L (3.5-5.1); Sodium 139 mEq/L (136-145); eGFR For African Americans > 60 (> 60); eGFR For Non-African Americans 53 (> 60)
[2020-04-14] MEDS: Insulin LISPRO 300 UNITS/3 ML VIAL SQ SCH ×3 (07:36→17:51)
[2020-04-14 08:21] VITALS: BP 144/80
[2020-04-14] MEDS: DilTIAZem CD (24hr) 240 MG CAP.ER.24H PO SCH (08:48)
[2020-04-14] MEDS: Folic Acid 1 MG TABLET PO SCH (08:48)
[2020-04-14] MEDS: Cholecalciferol (D-3) 1,000 UNIT (25MCG) TABLET PO SCH (08:48)
[2020-04-14] MEDS: Loratadine 10 MG TABLET PO SCH (08:48)
[2020-04-14] MEDS: Simethicone 80 MG TAB.CHEW PO SCH ×2 (08:48→08:50)
[2020-04-14] MEDS: Baclofen 10 MG TABLET PO SCH ×2 (08:49→16:00)
[2020-04-14] MEDS: levETIRAcetam 250 MG TABLET PO SCH (08:49)
[2020-04-14] MEDS: *HR* OxyCODONE/APAP 7.5/325 TABLET PO SCH ×2 (08:49→16:00)
[2020-04-14] MEDS ORDERED: Ertapenem 1,000 MG in 0.9 % Sodium Chloride Mini Bag 100 ML IVPB SCH (09:00)
[2020-04-14] MEDS ORDERED: Lidocaine -MPF 1% 5 ML AMPUL INFILT ONE (10:13)
[2020-04-14] MEDS: Gentamicin Oint 15 GM TUBE TP SCH (16:00)
[2020-04-14] MEDS: *HR* Rivaroxaban 15 MG TABLET PO SCH (17:54)
== END 2020-04-14 19:00 | DRG 380 ==
LOC: 2NENU 15:45 → EMEROOARM 15:45 → SUATTDRO 21:02 → 2NENU 21:30
PROVIDERS: ADMIT Internal Medicine; ATTEND Internal Medicine

== ENCOUNTER 2020-04-27 03:30 | Inpatient (IN) ==
[2020-04-27 04:30] LABS: Amorphous Sediment,Urine Few per hpf (None-Few); Bacteria,Urine Many per hpf (None-Few); Bilirubin,Urine Negative (Negative); Blood,Urine Large (Negative); Budding Yeast,Urine Few per hpf (None Seen); Clarity,Urine Ex.Turbid (Clear); Color,Urine Yellow (Yellow); Glucose,Urine (UA) Normal (Normal); Ketones,Urine Trace mg/dL (Negative); Leukocyte Esterase,Urine Large (Negative); Nitrite,Urine Negative (Negative); Protein,Urine 50 mg/dL (Neg-Trace); RBC,Urine TNTC per hpf (0-3); Specific Gravity,Urine 1.011 (1.010-1.025); Squamous Epithelial Cell,Urine Few per hpf (None-Few); WBC,Urine TNTC per hpf (0-3)
[2020-04-27] MEDS ORDERED: Piperacillin/Tazobactam 3.375 GM in 0.9 % Sodium Chloride Mini Bag 100 ML IVPB ONE (04:41)
[2020-04-27 04:42] LABS: Basophils # 0.1 K/mcL (0.0-0.2); Eosinophils # 0.6 K/mcL (0.0-0.6); Eosinophils % 6.3 %; Hematocrit 31.8 % (35.3-44.9); Hemoglobin 9.4 g/dL (11.5-15.4); Immature Granulocytes % 0.3 % (0-4); Lymphocytes # 1.5 K/mcL (0.6-4.6); Lymphocytes % 16.7 %; Mean Corpuscular HGB Conc 29.6 g/dL (31.6-35.5); Mean Corpuscular Hemoglobin 24.2 pg (28.0-33.3); Monocytes # 0.6 K/mcL (0.0-1.3); Monocytes % 6.1 %; Neutrophils # 6.3 K/mcL (1.6-8.9); Platelet Count 477 K/mcL (140-400); Red Blood Count 3.88 M/mcL (3.82-4.97); Segmented Neutrophils % 69.6 %
[2020-04-27 05:00] LABS: Alanine Aminotransferase 7 Units/L (7-52); Albumin 3.3 g/dL (3.5-5.7); Albumin/Globulin Ratio 0.9 (1.1-2.2); Alkaline Phosphatase 115 Units/L (34-104); Aspartate Amino Transferase 10 Units/L (13-39); BUN/Creatinine Ratio 9 (6-26); Bilirubin,Direct 0.1 mg/dL (0.0-0.2); Bilirubin,Indirect 0.3 mg/dL (0.0-1.0); Bilirubin,Total 0.4 mg/dL (0.3-1.0); Blood Urea Nitrogen 9 mg/dL (6-20); Calcium 8.8 mg/dL (8.6-10.3); Carbon Dioxide 25 mEq/L (23-29); Chloride 101 mEq/L (98-107); Globulin 3.7 g/dL (2.4-3.5); Glucose 97 mg/dL (70-105); Lipase 9 Units/L (11-82); Osmolality,Calculated 283 (280-300); Potassium 3.6 mEq/L (3.5-5.1); Sodium 137 mEq/L (136-145); eGFR For African Americans > 60 (> 60); eGFR For Non-African Americans > 60 (> 60)
[2020-04-27] MEDS ORDERED: Naloxone 0.4 MG/ML INJ IVP PRN (07:33)
[2020-04-27 09:11] LABS: Adenovirus Not Detected (Not Detect); Bordetella Pertussis Not Detected (Not Detect); Chlamydophila pneumoniae Not Detected (Not Detect); Coronavirus 229E Not Detected (Not Detect); Coronavirus HKU1 Not Detected (Not Detect); Coronavirus NL63 Not Detected (Not Detect); Coronavirus OC43 Not Detected (Not Detect); Human Metapneumovirus Not Detected (Not Detect); Human Rhinovirus/Enterovirus Not Detected (Not Detect); Influenza A Subtype 2009 H1 Not Detected (Not Detect); Influenza B Not Detected (Not Detect); Mycoplasma pneumoniae Not Detected (Not Detect); Parainfluenza Virus 1 Not Detected (Not Detect); Parainfluenza Virus 2 Not Detected (Not Detect); Parainfluenza Virus 3 Not Detected (Not Detect); Parainfluenza Virus 4 Not Detected (Not Detect); Respiratory Syncytial Virus Not Detected (Not Detect); SARS-CoV-2 Not Detected (Not Detect)
[2020-04-27] MEDS ORDERED: Acetaminophen 325 MG TABLET PO PRN (13:31)
[2020-04-27] MEDS ORDERED: Sennosides/Docusate Sodium TABLET PO PRN (13:31)
[2020-04-27] MEDS ORDERED: Saline Nasal Spray 44 ML BOTTLE NS PRN (13:31)
[2020-04-27] MEDS ORDERED: Mag Hydrox/Al Hydrox/Simeth 30 ML UDC PO PRN (13:31)
[2020-04-27] MEDS ORDERED: Ondansetron 4 MG/2 ML VIAL IM PRN (13:31)
[2020-04-27] MEDS ORDERED: *HR* Dextrose 50 % in Water (Vial) 50 ML VIAL IVP PRN (13:34)
[2020-04-27] MEDS ORDERED: Dextrose Gel 15 GM/37.5 ML TUBE PO PRN ×2 (13:34)
[2020-04-27] MEDS ORDERED: D5% in Water 1,000 ML IVC PRN (13:34)
[2020-04-27] MEDS ORDERED: Vancomycin 1 EACH in 0.9 % Sodium Chloride 250 ML IVPB SCH (14:00)
[2020-04-27] MEDS ORDERED: VITAMIN D3 PO SCH (15:00)
[2020-04-27] MEDS ORDERED: [UNRECOGNIZED DRUG - OTHER] PO SCH (15:00)
[2020-04-27] MEDS ORDERED: CALCIUM CARBONATE PO SCH (15:00)
[2020-04-27] MEDS: Cholecalciferol (D-3) 1,000 UNIT (25MCG) TABLET PO SCH (15:32)
[2020-04-27] MEDS: Baclofen 10 MG TABLET PO SCH ×2 (15:32→20:46)
[2020-04-27] MEDS ORDERED: Albuterol 2.5 MG/3 ML NEBULIZER IH PRN (16:00)
[2020-04-27] MEDS: Insulin LISPRO 300 UNITS/3 ML VIAL SQ SCH ×2 (17:11→20:42)
[2020-04-27] MEDS: *HR* OxyCODONE/APAP 7.5/325 TABLET PO SCH ×2 (17:56→20:46)
[2020-04-27] MEDS: Furosemide 40 MG TABLET PO SCH (17:56)
[2020-04-27] MEDS: Simethicone 80 MG TAB.CHEW PO SCH (20:46)
[2020-04-27] MEDS: levETIRAcetam 250 MG TABLET PO SCH (20:46)
[2020-04-28 03:30] LABS: Basophils # 0.1 K/mcL (0.0-0.2); Basophils % 0.9 %; Eosinophils # 0.6 K/mcL (0.0-0.6); Eosinophils % 6.2 %; Hematocrit 32.1 % (35.3-44.9); Hemoglobin 9.5 g/dL (11.5-15.4); Immature Granulocytes % 0.2 % (0-4); Lymphocytes # 1.7 K/mcL (0.6-4.6); Lymphocytes % 18.3 %; Mean Corpuscular HGB Conc 29.6 g/dL (31.6-35.5); Mean Corpuscular Hemoglobin 24.9 pg (28.0-33.3); Mean Platelet Volume 9.4 fL (9.4-12.4); Monocytes # 0.8 K/mcL (0.0-1.3); Neutrophils # 6.2 K/mcL (1.6-8.9); Platelet Count 484 K/mcL (140-400); Red Blood Count 3.82 M/mcL (3.82-4.97); Red Cell Distribution Width 18.9 % (11.5-14.5); Segmented Neutrophils % 66.4 %; White Blood Count 9.4 K/mcL (4.3-11.1)
[2020-04-28 03:49] LABS: BUN/Creatinine Ratio 9 (6-26); Blood Urea Nitrogen 9 mg/dL (6-20); Calcium 8.8 mg/dL (8.6-10.3); Carbon Dioxide 23 mEq/L (23-29); Chloride 102 mEq/L (98-107); Glucose 114 mg/dL (70-105); Magnesium 2.1 mg/dL (1.6-2.6); Osmolality,Calculated 288 (280-300); Phosphorous 3.6 mg/dL (2.7-4.5); Potassium 3.5 mEq/L (3.5-5.1); Sodium 139 mEq/L (136-145); eGFR For African Americans > 60 (> 60); eGFR For Non-African Americans 55 (> 60)
[2020-04-28] MEDS: Insulin LISPRO 300 UNITS/3 ML VIAL SQ SCH ×4 (07:56→20:06)
[2020-04-28] MEDS: Folic Acid 1 MG TABLET PO SCH (08:09)
[2020-04-28] MEDS: DilTIAZem CD (24hr) 240 MG CAP.ER.24H PO SCH (08:09)
[2020-04-28] MEDS: levETIRAcetam 250 MG TABLET PO SCH ×2 (08:10→20:10)
[2020-04-28] MEDS: Simethicone 80 MG TAB.CHEW PO SCH ×2 (08:10→20:11)
[2020-04-28] MEDS: Furosemide 40 MG TABLET PO SCH ×2 (08:11→17:55)
[2020-04-28] MEDS: *HR* OxyCODONE/APAP 7.5/325 TABLET PO SCH ×4 (08:11→20:10)
[2020-04-28] MEDS: Baclofen 10 MG TABLET PO SCH ×3 (08:12→20:10)
[2020-04-28] MEDS: Loratadine 10 MG TABLET PO SCH (08:12)
[2020-04-28] MEDS: *HR* Rivaroxaban 15 MG TABLET PO SCH (08:12)
[2020-04-28] MEDS: Multivit/Ca/Min/Fe/FA 1 TAB TABLET PO SCH (08:12)
[2020-04-28] MEDS: Cholecalciferol (D-3) 1,000 UNIT (25MCG) TABLET PO SCH (08:13)
[2020-04-28] MEDS: Ertapenem 1,000 MG in 0.9 % Sodium Chloride Mini Bag 100 ML IVPB SCH (11:24)
[2020-04-28] MEDS: Gentamicin Oint 15 GM TUBE TP SCH ×2 (11:58→20:12)
[2020-04-29 03:07] LABS: Hemoglobin 9.5 g/dL (11.5-15.4)
[2020-04-29 03:08] LABS: Basophils # 0.1 K/mcL (0.0-0.2); Basophils % 0.8 %; Eosinophils # 0.4 K/mcL (0.0-0.6); Eosinophils % 3.9 %; Hematocrit 32.8 % (35.3-44.9); Immature Granulocytes % 0.5 % (0-4); Lymphocytes # 1.7 K/mcL (0.6-4.6); Lymphocytes % 15.8 %; Mean Corpuscular Hemoglobin 24.5 pg (28.0-33.3); Mean Corpuscular Volume 84.8 fL (83.0-100.0); Mean Platelet Volume 9.5 fL (9.4-12.4); Monocytes # 0.7 K/mcL (0.0-1.3); Monocytes % 6.5 %; Platelet Count 495 K/mcL (140-400); Red Blood Count 3.87 M/mcL (3.82-4.97); Red Cell Distribution Width 19.1 % (11.5-14.5); Segmented Neutrophils % 72.5 %; White Blood Count 10.7 K/mcL (4.3-11.1)
[2020-04-29 03:15] LABS: Calcium 8.8 mg/dL (8.6-10.3); Potassium 3.7 mEq/L (3.5-5.1)
[2020-04-29 03:20] LABS: Neutrophils # 7.8 K/mcL (1.6-8.9)
[2020-04-29 03:52] LABS: Anisocytosis 1+ (Not Present); Hypochromasia Present (Not Present); Platelet Estimate Normal (Normal)
[2020-04-29] MEDS: Insulin LISPRO 300 UNITS/3 ML VIAL SQ SCH ×4 (09:05→21:26)
[2020-04-29] MEDS: levETIRAcetam 250 MG TABLET PO SCH ×2 (09:17→21:36)
[2020-04-29] MEDS: Simethicone 80 MG TAB.CHEW PO SCH ×2 (09:19→21:36)
[2020-04-29] MEDS: Loratadine 10 MG TABLET PO SCH (09:20)
[2020-04-29] MEDS: Baclofen 10 MG TABLET PO SCH (09:20)
[2020-04-29] MEDS: Multivit/Ca/Min/Fe/FA 1 TAB TABLET PO SCH (09:20)
[2020-04-29] MEDS: Furosemide 40 MG TABLET PO SCH ×2 (09:20→17:10)
[2020-04-29] MEDS: Folic Acid 1 MG TABLET PO SCH (09:21)
[2020-04-29] MEDS: Ertapenem 1,000 MG in 0.9 % Sodium Chloride Mini Bag 100 ML IVPB SCH (09:21)
[2020-04-29] MEDS: *HR* Rivaroxaban 15 MG TABLET PO SCH (09:21)
[2020-04-29] MEDS: Cholecalciferol (D-3) 1,000 UNIT (25MCG) TABLET PO SCH (09:21)
[2020-04-29] MEDS: DilTIAZem CD (24hr) 240 MG CAP.ER.24H PO SCH (09:22)
[2020-04-29] MEDS ORDERED: 0.9 % Sodium Chloride 1,000 ML IVC SCH (09:45)
[2020-04-29 09:51] LABS: Albumin 3.6 g/dL (3.5-5.7); Bilirubin,Direct 0.1 mg/dL (0.0-0.2); Bilirubin,Indirect 0.3 mg/dL (0.0-1.0); Bilirubin,Total 0.4 mg/dL (0.3-1.0); Globulin 3.7 g/dL (2.4-3.5); Total Protein 7.3 g/dL (6.4-8.9)
[2020-04-29] MEDS: *HR* OxyCODONE/APAP 7.5/325 TABLET PO SCH (09:55)
[2020-04-29 12:25] LABS: Bilirubin,Urine Negative (Negative); Blood,Urine Small (Negative); Clarity,Urine Turbid (Clear); Color,Urine Light-Yellow (Yellow); Glucose,Urine (UA) Normal (Normal); Ketones,Urine 40 mg/dL (Negative); Leukocyte Esterase,Urine Large (Negative); Mucus,Urine Few per lpf (None-Few); Nitrite,Urine Negative (Negative); Protein,Urine 30 mg/dL (Neg-Trace); Specific Gravity,Urine 1.009 (1.010-1.025); Squamous Epithelial Cell,Urine Few per hpf (None-Few); Urobilinogen,Urine Normal (Normal); WBC,Urine TNTC per hpf (0-3)
[2020-04-29] MEDS: Gentamicin Oint 15 GM TUBE TP SCH ×2 (13:20→21:35)
[2020-04-30 04:51] LABS: Basophils # 0.1 K/mcL (0.0-0.2); Basophils % 0.8 %; Eosinophils # 0.7 K/mcL (0.0-0.6); Eosinophils % 8.1 %; Hematocrit 31.9 % (35.3-44.9); Hemoglobin 9.3 g/dL (11.5-15.4); Immature Granulocytes % 0.4 % (0-4); Lymphocytes # 1.6 K/mcL (0.6-4.6); Lymphocytes % 17.2 %; Mean Corpuscular HGB Conc 29.2 g/dL (31.6-35.5); Mean Corpuscular Hemoglobin 23.8 pg (28.0-33.3); Mean Corpuscular Volume 81.8 fL (83.0-100.0); Mean Platelet Volume 9.4 fL (9.4-12.4); Monocytes # 0.5 K/mcL (0.0-1.3); Monocytes % 5.9 %; Neutrophils # 6.2 K/mcL (1.6-8.9); Platelet Count 537 K/mcL (140-400); Red Cell Distribution Width 19.3 % (11.5-14.5); Segmented Neutrophils % 67.6 %; White Blood Count 9.1 K/mcL (4.3-11.1)
[2020-04-30 05:09] LABS: Alanine Aminotransferase 7 Units/L (7-52); Albumin 3.1 g/dL (3.5-5.7); Albumin/Globulin Ratio 0.9 (1.1-2.2); Alkaline Phosphatase 106 Units/L (34-104); Aspartate Amino Transferase 10 Units/L (13-39); BUN/Creatinine Ratio 10 (6-26); Bilirubin,Total 0.3 mg/dL (0.3-1.0); Blood Urea Nitrogen 9 mg/dL (6-20); Calcium 8.3 mg/dL (8.6-10.3); Carbon Dioxide 21 mEq/L (23-29); Chloride 103 mEq/L (98-107); Globulin 3.3 g/dL (2.4-3.5); Glucose 104 mg/dL (70-105); Osmolality,Calculated 289 (280-300); Potassium 3.7 mEq/L (3.5-5.1); Sodium 140 mEq/L (136-145); Total Protein 6.4 g/dL (6.4-8.9); eGFR For African Americans > 60 (> 60); eGFR For Non-African Americans > 60 (> 60)
[2020-04-30] MEDS: Insulin LISPRO 300 UNITS/3 ML VIAL SQ SCH ×4 (08:51→20:06)
[2020-04-30] MEDS: Loratadine 10 MG TABLET PO SCH (09:01)
[2020-04-30] MEDS: Cholecalciferol (D-3) 1,000 UNIT (25MCG) TABLET PO SCH (09:01)
[2020-04-30] MEDS: Folic Acid 1 MG TABLET PO SCH (09:01)
[2020-04-30] MEDS: DilTIAZem CD (24hr) 240 MG CAP.ER.24H PO SCH (09:01)
[2020-04-30] MEDS: levETIRAcetam 250 MG TABLET PO SCH ×2 (09:01→20:10)
[2020-04-30] MEDS: Multivit/Ca/Min/Fe/FA 1 TAB TABLET PO SCH (09:01)
[2020-04-30] MEDS: *HR* Rivaroxaban 15 MG TABLET PO SCH (09:02)
[2020-04-30] MEDS: Simethicone 80 MG TAB.CHEW PO SCH ×2 (09:02→20:10)
[2020-04-30] MEDS: Ertapenem 1,000 MG in 0.9 % Sodium Chloride Mini Bag 100 ML IVPB SCH (09:02)
[2020-04-30] MEDS: Furosemide 40 MG TABLET PO SCH ×2 (09:02→16:40)
[2020-04-30] MEDS ORDERED: Lidocaine -MPF 1% 5 ML AMPUL INFILT ONE (11:50)
[2020-04-30] MEDS ORDERED: Heparin 1,000 UNITS/500 mL 500 ML ONE (14:15)
[2020-04-30] MEDS ORDERED: Baclofen 10 MG TABLET PO PRN (15:54)
[2020-04-30] MEDS ORDERED: *HR* OxyCODONE/APAP 7.5/325 TABLET PO PRN (15:54)
[2020-04-30] MEDS: Gentamicin Oint 15 GM TUBE TP SCH ×2 (16:45→20:13)
[2020-05-01] MEDS ORDERED: *HR* FentaNYL (PF) 100 MCG/2 ML VIAL IVP ONE (09:08)
[2020-05-01] MEDS ORDERED: *HR* Midazolam HCl 2 MG/2 ML VIAL IVP ONE (09:08)
[2020-05-01] MEDS ORDERED: 0.9 % Sodium Chloride 500 ML ONE (09:19)
[2020-05-01] MEDS: Insulin LISPRO 300 UNITS/3 ML VIAL SQ SCH ×2 (10:07→11:53)
[2020-05-01] MEDS: Cholecalciferol (D-3) 1,000 UNIT (25MCG) TABLET PO SCH (11:15)
[2020-05-01] MEDS: levETIRAcetam 250 MG TABLET PO SCH (11:15)
[2020-05-01] MEDS: Loratadine 10 MG TABLET PO SCH (11:16)
[2020-05-01] MEDS: DilTIAZem CD (24hr) 240 MG CAP.ER.24H PO SCH (11:16)
[2020-05-01] MEDS: Furosemide 40 MG TABLET PO SCH (11:16)
[2020-05-01] MEDS: Folic Acid 1 MG TABLET PO SCH (11:16)
[2020-05-01] MEDS: Ertapenem 1,000 MG in 0.9 % Sodium Chloride Mini Bag 100 ML IVPB SCH (11:16)
[2020-05-01] MEDS: Multivit/Ca/Min/Fe/FA 1 TAB TABLET PO SCH ×2 (11:16→11:37)
[2020-05-01] MEDS: Simethicone 80 MG TAB.CHEW PO SCH (11:17)
[2020-05-01] MEDS: Gentamicin Oint 15 GM TUBE TP SCH (11:17)
[2020-05-01 11:47] VITALS: BP 134/81
== END 2020-05-01 16:33 | DRG 52 ==
LOC: EMEROOARM 03:30 → 2ANU 03:30 → SUATTDRO 04-28 16:18 → 2ANU 04-29 11:43
PROVIDERS: ADMIT Internal Medicine; ATTEND Internal Medicine

== ENCOUNTER 2020-07-28 07:12 | Inpatient (IN) ==
[2020-07-28 08:14] LABS: Basophils % 0.2 %; Eosinophils % 0.1 %; Lymphocytes % 4.2 %; Red Cell Distribution Width 19.9 % (11.5-14.5)
[2020-07-28 08:15] LABS: Hematocrit 25.4 % (35.3-44.9); Hemoglobin 7.4 g/dL (11.5-15.4); Immature Granulocytes % 0.8 % (0-4); Lymphocytes # 0.8 K/mcL (0.6-4.6); Mean Corpuscular HGB Conc 29.1 g/dL (31.6-35.5); Mean Corpuscular Hemoglobin 22.6 pg (28.0-33.3); Mean Corpuscular Volume 77.4 fL (83.0-100.0); Mean Platelet Volume 9.3 fL (9.4-12.4); Monocytes % 3.9 %; Platelet Count 619 K/mcL (140-400); Red Blood Count 3.28 M/mcL (3.82-4.97); Segmented Neutrophils % 90.8 %
[2020-07-28 08:17] LABS: Monocytes # 0.7 K/mcL (0.0-1.3); Neutrophils # 17.3 K/mcL (1.6-8.9)
[2020-07-28 08:18] LABS: INR 1.8; Prothrombin Time 20.6 Seconds (9.4-12.1)
[2020-07-28 08:20] LABS: Activated Partial Thrombo Time 30.1 Seconds (26.0-36.0)
[2020-07-28 08:25] LABS: Bilirubin,Urine Negative (Negative); Blood,Urine Moderate (Negative); Clarity,Urine Ex.Turbid (Clear); Color,Urine Yellow (Yellow); Glucose,Urine (UA) Normal (Normal); Ketones,Urine Negative (Negative); Leukocyte Esterase,Urine Large (Negative); Nitrite,Urine Negative (Negative); PH,Urine 6.5 pH Units (5.0-8.0); Protein,Urine 70 mg/dL (Neg-Trace); Specific Gravity,Urine 1.009 (1.010-1.025); Urobilinogen,Urine Normal (Normal)
[2020-07-28 08:27] LABS: Bacteria,Urine Many per hpf (None-Few); Squamous Epithelial Cell,Urine Few per hpf (None-Few); WBC,Urine TNTC per hpf (0-3)
[2020-07-28 08:28] LABS: Transitional Epi Cells,Urine Few per hpf (None-Few)
[2020-07-28 08:29] LABS: Amphetamine Screen,Urine Negative ng/mL (Cutoff=1000); Barbiturate Screen,Urine Negative ng/mL (Cutoff=200); Benzodiazepines Screen,Urine Negative ng/mL (Cutoff=200); Cannabinoid Screen,Urine Negative ng/mL (Cutoff = 50); Cocaine Screen,Urine Negative ng/mL (Cutoff= 300); Opiate Screen,Urine Negative ng/mL (Cutoff=300); Phencyclidine Screen,Urine Negative ng/mL (Cutoff=25); Renal Epithelial Cells,Urine Few per hpf (None-Few)
[2020-07-28 08:30] LABS: RBC,Urine 15-30 per hpf (0-3)
[2020-07-28] MEDS ORDERED: 0.9 % Sodium Chloride 1,000 ML IVC ONE ×2 (08:31→11:22)
[2020-07-28] MEDS ORDERED: Ertapenem 1,000 MG in 0.9 % Sodium Chloride Mini Bag 100 ML IVPB ONE (08:34)
[2020-07-28 08:35] LABS: Acetaminophen < 10 mcg/mL (10-20); Alanine Aminotransferase 7 Units/L (7-52); Albumin 2.7 g/dL (3.5-5.7); Albumin/Globulin Ratio 0.7 (1.1-2.2); Alkaline Phosphatase 161 Units/L (34-104); Aspartate Amino Transferase 7 Units/L (13-39); BUN/Creatinine Ratio 14 (6-26); Bilirubin,Direct 0.3 mg/dL (0.0-0.2); Bilirubin,Indirect 0.1 mg/dL (0.0-1.0); Bilirubin,Total 0.4 mg/dL (0.3-1.0); Blood Urea Nitrogen 22 mg/dL (6-20); Calcium 8.6 mg/dL (8.6-10.3); Carbon Dioxide 24 mEq/L (23-29); Chloride 100 mEq/L (98-107); Ethanol < 10 mg/dL (Less than 10); Glucose 167 mg/dL (70-105); Osmolality,Calculated 291 (280-300); Potassium 3.4 mEq/L (3.5-5.1); Salicylate < 2.5 mg/dL (15.0-30.0); Sodium 137 mEq/L (136-145); Total Protein 6.7 g/dL (6.4-8.9); Troponin I < 0.03 ng/mL (< 0.04); eGFR For African Americans 41 (> 60); eGFR For Non-African Americans 34 (> 60)
[2020-07-28 08:59] LABS: Adenovirus Not Detected (Not Detect); Bordetella Pertussis Not Detected (Not Detect); Chlamydophila pneumoniae Not Detected (Not Detect); Coronavirus 229E Not Detected (Not Detect); Coronavirus HKU1 Not Detected (Not Detect); Coronavirus NL63 Not Detected (Not Detect); Coronavirus OC43 Not Detected (Not Detect); Human Metapneumovirus Not Detected (Not Detect); Human Rhinovirus/Enterovirus Not Detected (Not Detect); Influenza A Subtype 2009 H1 Not Detected (Not Detect); Influenza B Not Detected (Not Detect); Mycoplasma pneumoniae Not Detected (Not Detect); Parainfluenza Virus 1 Not Detected (Not Detect); Parainfluenza Virus 2 Not Detected (Not Detect); Parainfluenza Virus 3 Not Detected (Not Detect); Parainfluenza Virus 4 Not Detected (Not Detect); Respiratory Syncytial Virus Not Detected (Not Detect); SARS-CoV-2 Not Detected (Not Detect)
[2020-07-28] MEDS ORDERED: *HR* FentaNYL (PF) 100 MCG/2 ML VIAL IVP ONE (10:07)
[2020-07-28] MEDS ORDERED: Naloxone 0.4 MG/ML INJ IVP PRN (13:31)
[2020-07-28] MEDS ORDERED: Ondansetron 4 MG/2 ML VIAL IVP PRN (13:31)
[2020-07-28] MEDS ORDERED: Sennosides/Docusate Sodium TABLET PO PRN (13:40)
[2020-07-28] MEDS ORDERED: Saline Nasal Spray 44 ML BOTTLE NS PRN (13:40)
[2020-07-28] MEDS ORDERED: D5% in Water 1,000 ML IVC PRN (13:42)
[2020-07-28] MEDS ORDERED: Dextrose Gel 15 GM/37.5 ML TUBE PO PRN ×2 (13:42)
[2020-07-28] MEDS ORDERED: *HR* Dextrose 50 % in Water (Vial) 50 ML VIAL IVP PRN (13:42)
[2020-07-28] MEDS ORDERED: 0.9 % Sodium Chloride 1,000 ML IVC SCH (13:45)
[2020-07-28 14:28] LABS: C-Reactive Protein 173 mg/L (Less than 10)
[2020-07-28] MEDS: Insulin LISPRO 300 UNITS/3 ML VIAL SQ SCH (17:42)
[2020-07-28] MEDS: Acetaminophen 325 MG TABLET PO PRN (17:46)
[2020-07-28] MEDS: levETIRAcetam 250 MG TABLET PO SCH (21:32)
[2020-07-28] MEDS: Simethicone 80 MG TAB.CHEW PO SCH (21:33)
[2020-07-29 05:51] LABS: Eosinophils % 0.7 %; Mean Platelet Volume 9.1 fL (9.4-12.4); Segmented Neutrophils % 84.8 %
[2020-07-29 05:52] LABS: Basophils # 0.1 K/mcL (0.0-0.2); Basophils % 0.3 %; Eosinophils # 0.1 K/mcL (0.0-0.6); Hematocrit 24.1 % (35.3-44.9); Hemoglobin 6.9 g/dL (11.5-15.4); Immature Granulocytes % 0.8 % (0-4); Lymphocytes # 1.6 K/mcL (0.6-4.6); Lymphocytes % 8.3 %; Mean Corpuscular HGB Conc 28.6 g/dL (31.6-35.5); Mean Corpuscular Hemoglobin 22.4 pg (28.0-33.3); Mean Corpuscular Volume 78.2 fL (83.0-100.0); Monocytes % 5.1 %; Neutrophils # 16.4 K/mcL (1.6-8.9); Platelet Count 599 K/mcL (140-400); Red Blood Count 3.08 M/mcL (3.82-4.97); White Blood Count 19.3 K/mcL (4.3-11.1)
[2020-07-29 06:35] LABS: Anisocytosis 1+ (Not Present); Calcium 8.3 mg/dL (8.6-10.3); Hypochromasia Present (Not Present); Phosphorous 3.7 mg/dL (2.7-4.5); Poikilocytosis 1+ (Not Present); Potassium 2.7 mEq/L (3.5-5.1)
[2020-07-29 06:36] LABS: Platelet Estimate Marked Increase (Normal)
[2020-07-29] MEDS: Insulin LISPRO 300 UNITS/3 ML VIAL SQ SCH ×4 (07:51→20:18)
[2020-07-29] MEDS: levETIRAcetam 250 MG TABLET PO SCH ×2 (07:59→20:26)
[2020-07-29] MEDS: Loratadine 10 MG TABLET PO SCH (07:59)
[2020-07-29] MEDS: Folic Acid 1 MG TABLET PO SCH (08:00)
[2020-07-29] MEDS: Simethicone 80 MG TAB.CHEW PO SCH ×2 (08:00→20:26)
[2020-07-29] MEDS: DilTIAZem CD (24hr) 240 MG CAP.ER.24H PO SCH (08:00)
[2020-07-29] MEDS ORDERED: *HR* OxyCODONE/APAP 5/325 TABLET PO ONE (08:09)
[2020-07-29] MEDS ORDERED: Ertapenem 1,000 MG in 0.9 % Sodium Chloride Mini Bag 100 ML IVPB SCH (09:00)
[2020-07-29] MEDS ORDERED: *HR* Rivaroxaban 15 MG TABLET PO SCH (09:00)
[2020-07-29 09:26] LABS: Hemoglobin 6.8 g/dL (11.5-15.4)
[2020-07-29] MEDS: Vancomycin 1,250 MG/262.5 ML IV.SOLN IVPB SCH (11:56)
[2020-07-29] MEDS ORDERED: *HR* LORazepam 0.5 MG TABLET PO PRN (12:38)
[2020-07-29] MEDS ORDERED: 0.9 % Sodium Chloride 250 ML ONE (12:46)
[2020-07-29] MEDS: Sennosides/Docusate Sodium TABLET PO SCH ×2 (15:53→20:25)
[2020-07-29] MEDS: Gentamicin Oint 15 GM TUBE TP SCH (17:22)
[2020-07-29] MEDS: Meropenem 1,000 MG in 0.9 % Sodium Chloride Mini Bag 100 ML IVPB SCH ×2 (17:23→23:33)
[2020-07-30 02:25] LABS: Basophils # 0.1 K/mcL (0.0-0.2); Basophils % 0.4 %; Eosinophils # 0.2 K/mcL (0.0-0.6); Eosinophils % 1.4 %; Hematocrit 26.1 % (35.3-44.9); Hemoglobin 7.7 g/dL (11.5-15.4); Immature Granulocytes % 0.6 % (0-4); Lymphocytes # 1.4 K/mcL (0.6-4.6); Lymphocytes % 8.6 %; Mean Corpuscular HGB Conc 29.5 g/dL (31.6-35.5); Mean Corpuscular Volume 77.9 fL (83.0-100.0); Monocytes # 0.7 K/mcL (0.0-1.3); Monocytes % 4.6 %; Neutrophils # 13.6 K/mcL (1.6-8.9); Platelet Count 615 K/mcL (140-400); Red Blood Count 3.35 M/mcL (3.82-4.97); Red Cell Distribution Width 19.5 % (11.5-14.5); Segmented Neutrophils % 84.4 %; White Blood Count 16.2 K/mcL (4.3-11.1)
[2020-07-30 02:43] LABS: Calcium 8.2 mg/dL (8.6-10.3); Phosphorous 3.3 mg/dL (2.7-4.5)
[2020-07-30] MEDS: Insulin LISPRO 300 UNITS/3 ML VIAL SQ SCH ×4 (07:40→21:28)
[2020-07-30] MEDS: Folic Acid 1 MG TABLET PO SCH (07:49)
[2020-07-30] MEDS: DilTIAZem CD (24hr) 240 MG CAP.ER.24H PO SCH (07:50)
[2020-07-30] MEDS: levETIRAcetam 250 MG TABLET PO SCH ×2 (07:50→21:27)
[2020-07-30] MEDS: Meropenem 1,000 MG in 0.9 % Sodium Chloride Mini Bag 100 ML IVPB SCH ×2 (07:50→17:46)
[2020-07-30] MEDS: Simethicone 80 MG TAB.CHEW PO SCH ×2 (07:50→21:28)
[2020-07-30] MEDS: Loratadine 10 MG TABLET PO SCH (07:50)
[2020-07-30] MEDS: Sennosides/Docusate Sodium TABLET PO SCH ×2 (07:51→21:27)
[2020-07-30] MEDS: Gentamicin Oint 15 GM TUBE TP SCH (07:51)
[2020-07-30] MEDS: Vancomycin 1,250 MG/262.5 ML IV.SOLN IVPB SCH (08:01)
[2020-07-30] MEDS: *HR* OxyCODONE/APAP 7.5/325 TABLET PO PRN (21:29)
[2020-07-31] MEDS: Gentamicin Oint 15 GM TUBE TP SCH
[2020-07-31] MEDS: Meropenem 1,000 MG in 0.9 % Sodium Chloride Mini Bag 100 ML IVPB SCH ×3 (00:07→16:26)
[2020-07-31 02:18] LABS: Basophils % 0.4 %; Eosinophils # 0.3 K/mcL (0.0-0.6); Eosinophils % 2.6 %; Hematocrit 26.2 % (35.3-44.9); Hemoglobin 7.7 g/dL (11.5-15.4); Immature Granulocytes % 0.6 % (0-4); Lymphocytes # 1.3 K/mcL (0.6-4.6); Lymphocytes % 11.6 %; Mean Corpuscular HGB Conc 29.4 g/dL (31.6-35.5); Mean Corpuscular Hemoglobin 23.5 pg (28.0-33.3); Mean Corpuscular Volume 79.9 fL (83.0-100.0); Monocytes # 0.6 K/mcL (0.0-1.3); Monocytes % 5.5 %; Neutrophils # 8.6 K/mcL (1.6-8.9); Platelet Count 621 K/mcL (140-400); Red Blood Count 3.28 M/mcL (3.82-4.97); Red Cell Distribution Width 19.7 % (11.5-14.5); Segmented Neutrophils % 79.3 %; White Blood Count 10.8 K/mcL (4.3-11.1)
[2020-07-31 02:40] LABS: Calcium 8.6 mg/dL (8.6-10.3); Magnesium 1.9 mg/dL (1.6-2.6); Phosphorous 3.2 mg/dL (2.7-4.5); Potassium 4.2 mEq/L (3.5-5.1)
[2020-07-31] MEDS: Acetaminophen 325 MG TABLET PO PRN (03:14)
[2020-07-31] MEDS: Simethicone 80 MG TAB.CHEW PO SCH ×3 (08:17→21:26)
[2020-07-31] MEDS: Folic Acid 1 MG TABLET PO SCH (08:17)
[2020-07-31] MEDS: Loratadine 10 MG TABLET PO SCH (08:17)
[2020-07-31] MEDS: DilTIAZem CD (24hr) 240 MG CAP.ER.24H PO SCH (08:17)
[2020-07-31] MEDS: Insulin LISPRO 300 UNITS/3 ML VIAL SQ SCH ×4 (08:18→21:27)
[2020-07-31] MEDS: levETIRAcetam 250 MG TABLET PO SCH ×2 (08:18→21:26)
[2020-07-31] MEDS: *HR* OxyCODONE/APAP 7.5/325 TABLET PO PRN (16:28)
[2020-07-31] MEDS: Iron Sucrose Complex 200 MG in 0.9 % Sodium Chloride 100 ML IVPB SCH (18:43)
[2020-07-31] MEDS: Sennosides/Docusate Sodium TABLET PO SCH (21:27)
[2020-08-01] MEDS: Meropenem 1,000 MG in 0.9 % Sodium Chloride Mini Bag 100 ML IVPB SCH ×4 (00:50→23:57)
[2020-08-01] MEDS: Vancomycin 1,250 MG/262.5 ML IV.SOLN IVPB SCH (01:27)
[2020-08-01] MEDS: *HR* OxyCODONE/APAP 7.5/325 TABLET PO PRN (01:38)
[2020-08-01 07:23] LABS: Basophils % 0.3 %; Eosinophils # 0.5 K/mcL (0.0-0.6); Eosinophils % 3.8 %; Hematocrit 27.7 % (35.3-44.9); Hemoglobin 8.1 g/dL (11.5-15.4); Immature Granulocytes % 0.7 % (0-4); Lymphocytes # 1.4 K/mcL (0.6-4.6); Lymphocytes % 11.4 %; Mean Corpuscular HGB Conc 29.2 g/dL (31.6-35.5); Mean Corpuscular Hemoglobin 23.1 pg (28.0-33.3); Mean Corpuscular Volume 79.1 fL (83.0-100.0); Mean Platelet Volume 8.9 fL (9.4-12.4); Monocytes # 0.6 K/mcL (0.0-1.3); Monocytes % 4.6 %; Neutrophils # 9.6 K/mcL (1.6-8.9); Platelet Count 649 K/mcL (140-400); Red Cell Distribution Width 20.2 % (11.5-14.5); Segmented Neutrophils % 79.2 %; White Blood Count 12.1 K/mcL (4.3-11.1)
[2020-08-01 08:01] LABS: Calcium 8.9 mg/dL (8.6-10.3); Magnesium 2.4 mg/dL (1.6-2.6); Phosphorous 3.2 mg/dL (2.7-4.5); Potassium 4.3 mEq/L (3.5-5.1)
[2020-08-01] MEDS: Insulin LISPRO 300 UNITS/3 ML VIAL SQ SCH ×4 (08:30→21:00)
[2020-08-01] MEDS: Loratadine 10 MG TABLET PO SCH (08:37)
[2020-08-01] MEDS: Simethicone 80 MG TAB.CHEW PO SCH ×2 (08:37→23:55)
[2020-08-01] MEDS: Folic Acid 1 MG TABLET PO SCH (08:37)
[2020-08-01] MEDS: levETIRAcetam 250 MG TABLET PO SCH ×2 (08:37→23:50)
[2020-08-01] MEDS: DilTIAZem CD (24hr) 240 MG CAP.ER.24H PO SCH (08:39)
[2020-08-01] MEDS: DilTIAZem CD (24hr) 300 MG CAP.ER.24H PO SCH (08:51)
[2020-08-01] MEDS: Gentamicin Oint 15 GM TUBE TP SCH (09:04)
[2020-08-01] MEDS: Iron Sucrose Complex 200 MG in 0.9 % Sodium Chloride 100 ML IVPB SCH (17:29)
[2020-08-01] MEDS: Sennosides/Docusate Sodium TABLET PO SCH (23:53)
[2020-08-02] MEDS: Insulin LISPRO 300 UNITS/3 ML VIAL SQ SCH ×4 (07:29→20:48)
[2020-08-02] MEDS: Loratadine 10 MG TABLET PO SCH (08:58)
[2020-08-02] MEDS: DilTIAZem CD (24hr) 300 MG CAP.ER.24H PO SCH (08:58)
[2020-08-02] MEDS: levETIRAcetam 250 MG TABLET PO SCH ×2 (08:58→20:48)
[2020-08-02] MEDS: Folic Acid 1 MG TABLET PO SCH (08:58)
[2020-08-02] MEDS: Simethicone 80 MG TAB.CHEW PO SCH ×2 (08:59→20:47)
[2020-08-02] MEDS: Meropenem 1,000 MG in 0.9 % Sodium Chloride Mini Bag 100 ML IVPB SCH ×2 (08:59→16:01)
[2020-08-02] MEDS: Gentamicin Oint 15 GM TUBE TP SCH (09:00)
[2020-08-02] MEDS: *HR* OxyCODONE/APAP 7.5/325 TABLET PO PRN (09:08)
[2020-08-02 13:53] LABS: Basophils # 0.1 K/mcL (0.0-0.2); Basophils % 0.6 %; Eosinophils # 0.6 K/mcL (0.0-0.6); Hematocrit 29.3 % (35.3-44.9); Hemoglobin 8.5 g/dL (11.5-15.4); Immature Granulocytes % 0.7 % (0-4); Lymphocytes # 2.1 K/mcL (0.6-4.6); Lymphocytes % 18.1 %; Mean Corpuscular Hemoglobin 23.2 pg (28.0-33.3); Mean Corpuscular Volume 80.1 fL (83.0-100.0); Mean Platelet Volume 8.9 fL (9.4-12.4); Monocytes # 0.7 K/mcL (0.0-1.3); Monocytes % 5.6 %; Neutrophils # 8.1 K/mcL (1.6-8.9); Platelet Count 644 K/mcL (140-400); Red Blood Count 3.66 M/mcL (3.82-4.97); Red Cell Distribution Width 20.9 % (11.5-14.5); White Blood Count 11.5 K/mcL (4.3-11.1)
[2020-08-02 14:08] LABS: Calcium 8.7 mg/dL (8.6-10.3); Potassium 4.4 mEq/L (3.5-5.1)
[2020-08-02] MEDS: Iron Sucrose Complex 200 MG in 0.9 % Sodium Chloride 100 ML IVPB SCH (17:32)
[2020-08-02] MEDS: *HR* Rivaroxaban 15 MG TABLET PO SCH (17:32)
[2020-08-02] MEDS: Sennosides/Docusate Sodium TABLET PO SCH ×2 (20:46→20:53)
[2020-08-03] MEDS: *HR* LORazepam 0.5 MG TABLET PO PRN (00:37)
[2020-08-03] MEDS: Meropenem 1,000 MG in 0.9 % Sodium Chloride Mini Bag 100 ML IVPB SCH ×3 (00:37→15:25)
[2020-08-03] MEDS: *HR* OxyCODONE/APAP 7.5/325 TABLET PO PRN (00:37)
[2020-08-03 05:24] LABS: Basophils % 0.5 %; Immature Granulocytes % 0.7 % (0-4); Monocytes % 4.5 %; Potassium 4.3 mEq/L (3.5-5.1)
[2020-08-03 05:26] LABS: Basophils # 0.1 K/mcL (0.0-0.2); Eosinophils # 0.6 K/mcL (0.0-0.6); Eosinophils % 3.7 %; Hematocrit 29.1 % (35.3-44.9); Hemoglobin 8.4 g/dL (11.5-15.4); Lymphocytes # 1.2 K/mcL (0.6-4.6); Lymphocytes % 8.1 %; Mean Corpuscular HGB Conc 28.9 g/dL (31.6-35.5); Mean Corpuscular Hemoglobin 22.7 pg (28.0-33.3); Mean Corpuscular Volume 78.6 fL (83.0-100.0); Mean Platelet Volume 8.8 fL (9.4-12.4); Monocytes # 0.7 K/mcL (0.0-1.3); Platelet Count 686 K/mcL (140-400); Red Cell Distribution Width 21.3 % (11.5-14.5); Segmented Neutrophils % 82.5 %; White Blood Count 15.3 K/mcL (4.3-11.1)
[2020-08-03 05:41] LABS: Neutrophils # 12.6 K/mcL (1.6-8.9)
[2020-08-03 06:38] LABS: Hypochromasia Present (Not Present); Platelet Estimate Increased (Normal)
[2020-08-03] MEDS: Insulin LISPRO 300 UNITS/3 ML VIAL SQ SCH ×4 (07:29→21:12)
[2020-08-03] MEDS: Folic Acid 1 MG TABLET PO SCH (09:22)
[2020-08-03] MEDS: levETIRAcetam 250 MG TABLET PO SCH ×2 (09:22→21:12)
[2020-08-03] MEDS: Simethicone 80 MG TAB.CHEW PO SCH ×2 (09:22→21:11)
[2020-08-03] MEDS: DilTIAZem CD (24hr) 300 MG CAP.ER.24H PO SCH (09:22)
[2020-08-03] MEDS: Loratadine 10 MG TABLET PO SCH (09:22)
[2020-08-03] MEDS: Gentamicin Oint 15 GM TUBE TP SCH (11:35)
[2020-08-03] MEDS: *HR* Rivaroxaban 15 MG TABLET PO SCH (15:26)
[2020-08-03] MEDS: Iron Sucrose Complex 200 MG in 0.9 % Sodium Chloride 100 ML IVPB SCH (17:01)
[2020-08-03] MEDS: Sennosides/Docusate Sodium TABLET PO SCH (21:12)
[2020-08-04] MEDS: Meropenem 1,000 MG in 0.9 % Sodium Chloride Mini Bag 100 ML IVPB SCH ×3 (00:09→16:32)
[2020-08-04] MEDS: Insulin LISPRO 300 UNITS/3 ML VIAL SQ SCH ×4 (07:42→21:27)
[2020-08-04] MEDS: DilTIAZem CD (24hr) 300 MG CAP.ER.24H PO SCH (07:52)
[2020-08-04] MEDS: Simethicone 80 MG TAB.CHEW PO SCH ×2 (07:52→21:34)
[2020-08-04] MEDS: levETIRAcetam 250 MG TABLET PO SCH ×2 (07:53→21:34)
[2020-08-04] MEDS: Loratadine 10 MG TABLET PO SCH (07:53)
[2020-08-04] MEDS: Folic Acid 1 MG TABLET PO SCH (07:56)
[2020-08-04] MEDS: Gentamicin Oint 15 GM TUBE TP SCH (07:57)
[2020-08-04 10:39] LABS: Basophils # 0.1 K/mcL (0.0-0.2); Basophils % 0.7 %; Eosinophils # 0.7 K/mcL (0.0-0.6); Eosinophils % 5.9 %; Hematocrit 31.2 % (35.3-44.9); Hemoglobin 9.2 g/dL (11.5-15.4); Immature Granulocytes % 1.1 % (0-4); Lymphocytes # 1.6 K/mcL (0.6-4.6); Mean Corpuscular HGB Conc 29.5 g/dL (31.6-35.5); Mean Corpuscular Hemoglobin 23.7 pg (28.0-33.3); Mean Corpuscular Volume 80.2 fL (83.0-100.0); Mean Platelet Volume 9.1 fL (9.4-12.4); Monocytes # 0.7 K/mcL (0.0-1.3); Monocytes % 6.1 %; Neutrophils # 8.7 K/mcL (1.6-8.9); Platelet Count 585 K/mcL (140-400); Red Blood Count 3.89 M/mcL (3.82-4.97); Red Cell Distribution Width 21.8 % (11.5-14.5); Segmented Neutrophils % 73.2 %; White Blood Count 11.9 K/mcL (4.3-11.1)
[2020-08-04 11:02] LABS: BUN/Creatinine Ratio 21 (6-26); Blood Urea Nitrogen 21 mg/dL (6-20); Calcium 9.3 mg/dL (8.6-10.3); Carbon Dioxide 20 mEq/L (23-29); Chloride 107 mEq/L (98-107); Glucose 134 mg/dL (70-105); Osmolality,Calculated 293 (280-300); Potassium 4.3 mEq/L (3.5-5.1); Sodium 139 mEq/L (136-145); eGFR For African Americans > 60 (> 60); eGFR For Non-African Americans 56 (> 60)
[2020-08-04] MEDS: *HR* Rivaroxaban 15 MG TABLET PO SCH (16:32)
[2020-08-04] MEDS: Sennosides/Docusate Sodium TABLET PO SCH (21:34)
[2020-08-05] MEDS: Meropenem 1,000 MG in 0.9 % Sodium Chloride Mini Bag 100 ML IVPB SCH ×4 (00:40→23:26)
[2020-08-05] MEDS: DilTIAZem CD (24hr) 300 MG CAP.ER.24H PO SCH (07:56)
[2020-08-05] MEDS: Simethicone 80 MG TAB.CHEW PO SCH ×2 (07:56→21:24)
[2020-08-05] MEDS: Folic Acid 1 MG TABLET PO SCH (07:56)
[2020-08-05] MEDS: Insulin LISPRO 300 UNITS/3 ML VIAL SQ SCH ×4 (07:56→21:29)
[2020-08-05] MEDS: Loratadine 10 MG TABLET PO SCH (07:57)
[2020-08-05] MEDS: levETIRAcetam 250 MG TABLET PO SCH ×2 (07:57→21:26)
[2020-08-05] MEDS: Gentamicin Oint 15 GM TUBE TP SCH (08:01)
[2020-08-05] MEDS ORDERED: Haloperidol Lactate 5 MG/ML VIAL IVP ONE (09:26)
[2020-08-05 10:17] LABS: BUN/Creatinine Ratio 17 (6-26); Blood Urea Nitrogen 17 mg/dL (6-20); Calcium 9.1 mg/dL (8.6-10.3); Carbon Dioxide 18 mEq/L (23-29); Chloride 107 mEq/L (98-107); Glucose 113 mg/dL (70-105); Osmolality,Calculated 292 (280-300); Potassium 4.3 mEq/L (3.5-5.1); Sodium 140 mEq/L (136-145); eGFR For African Americans > 60 (> 60); eGFR For Non-African Americans 59 (> 60)
[2020-08-05 10:21] LABS: Hematocrit 31.4 % (35.3-44.9); Immature Granulocytes % 0.9 % (0-4)
[2020-08-05 10:23] LABS: Basophils # 0.1 K/mcL (0.0-0.2); Basophils % 0.7 %; Eosinophils # 0.6 K/mcL (0.0-0.6); Hemoglobin 9.1 g/dL (11.5-15.4); Lymphocytes # 1.7 K/mcL (0.6-4.6); Lymphocytes % 15.4 %; Mean Corpuscular Hemoglobin 23.8 pg (28.0-33.3); Mean Platelet Volume 9.7 fL (9.4-12.4); Monocytes # 0.7 K/mcL (0.0-1.3); Monocytes % 6.7 %; Neutrophils # 7.8 K/mcL (1.6-8.9); Platelet Count 612 K/mcL (140-400); Red Blood Count 3.83 M/mcL (3.82-4.97); Red Cell Distribution Width 22.1 % (11.5-14.5); Segmented Neutrophils % 71.3 %
[2020-08-05 11:17] LABS: Poikilocytosis 2+ (Not Present); Stomatocytes 2+ (Not Present)
[2020-08-05 11:18] LABS: Anisocytosis 1+ (Not Present); Macrocytosis Present (Not Present)
[2020-08-05 11:19] LABS: Hypochromasia Present (Not Present)
[2020-08-05] MEDS: *HR* Rivaroxaban 10 MG TABLET PO SCH (16:54)
[2020-08-05] MEDS: Sennosides/Docusate Sodium TABLET PO SCH (21:26)
[2020-08-05] MEDS: QUEtiapine Fumarate 25 MG TABLET PO SCH (21:28)
[2020-08-06 06:43] LABS: Eosinophils % 5.3 %; Hemoglobin 8.5 g/dL (11.5-15.4); Immature Granulocytes % 0.5 % (0-4)
[2020-08-06 06:45] LABS: Basophils # 0.1 K/mcL (0.0-0.2); Basophils % 0.9 %; Eosinophils # 0.5 K/mcL (0.0-0.6); Hematocrit 30.7 % (35.3-44.9); Lymphocytes # 1.2 K/mcL (0.6-4.6); Lymphocytes % 12.9 %; Mean Corpuscular HGB Conc 27.7 g/dL (31.6-35.5); Mean Corpuscular Hemoglobin 22.9 pg (28.0-33.3); Mean Corpuscular Volume 82.7 fL (83.0-100.0); Mean Platelet Volume 9.1 fL (9.4-12.4); Monocytes # 0.6 K/mcL (0.0-1.3); Monocytes % 6.2 %; Neutrophils # 6.9 K/mcL (1.6-8.9); Platelet Count 593 K/mcL (140-400); Red Blood Count 3.71 M/mcL (3.82-4.97); Red Cell Distribution Width 22.1 % (11.5-14.5); Segmented Neutrophils % 74.2 %; White Blood Count 9.3 K/mcL (4.3-11.1)
[2020-08-06 07:09] LABS: Anisocytosis 1+ (Not Present)
[2020-08-06 07:10] LABS: Hypochromasia Present (Not Present); Macrocytosis Present (Not Present)
[2020-08-06 08:45] LABS: BUN/Creatinine Ratio 17 (6-26); Blood Urea Nitrogen 16 mg/dL (6-20); Calcium 9.1 mg/dL (8.6-10.3); Carbon Dioxide 17 mEq/L (23-29); Chloride 105 mEq/L (98-107); Glucose 115 mg/dL (70-105); Osmolality,Calculated 288 (280-300); Sodium 138 mEq/L (136-145); eGFR For African Americans > 60 (> 60); eGFR For Non-African Americans > 60 (> 60)
[2020-08-06] MEDS: Insulin LISPRO 300 UNITS/3 ML VIAL SQ SCH ×3 (09:14→16:13)
[2020-08-06] MEDS: Simethicone 80 MG TAB.CHEW PO SCH (09:30)
[2020-08-06] MEDS: DilTIAZem CD (24hr) 300 MG CAP.ER.24H PO SCH (09:30)
[2020-08-06] MEDS: Folic Acid 1 MG TABLET PO SCH (09:30)
[2020-08-06] MEDS: levETIRAcetam 250 MG TABLET PO SCH (09:30)
[2020-08-06] MEDS: Loratadine 10 MG TABLET PO SCH (09:31)
[2020-08-06] MEDS: Meropenem 1,000 MG in 0.9 % Sodium Chloride Mini Bag 100 ML IVPB SCH ×2 (09:33→16:21)
[2020-08-06] MEDS: Gentamicin Oint 15 GM TUBE TP SCH (15:22)
[2020-08-06] MEDS: *HR* Rivaroxaban 10 MG TABLET PO SCH (16:13)
[2020-08-07] MEDS: Meropenem 1,000 MG in 0.9 % Sodium Chloride Mini Bag 100 ML IVPB SCH ×3 (00:23→17:23)
[2020-08-07] MEDS: levETIRAcetam 250 MG TABLET PO SCH ×3 (01:15→22:33)
[2020-08-07] MEDS: Simethicone 80 MG TAB.CHEW PO SCH ×3 (01:15→22:33)
[2020-08-07] MEDS: Insulin LISPRO 300 UNITS/3 ML VIAL SQ SCH ×5 (01:15→22:33)
[2020-08-07] MEDS: QUEtiapine Fumarate 25 MG TABLET PO SCH ×2 (01:16→22:32)
[2020-08-07] MEDS: Sennosides/Docusate Sodium TABLET PO SCH ×2 (01:16→22:32)
[2020-08-07] MEDS: Gentamicin Oint 15 GM TUBE TP SCH (08:26)
[2020-08-07] MEDS: DilTIAZem CD (24hr) 300 MG CAP.ER.24H PO SCH (08:46)
[2020-08-07] MEDS: Folic Acid 1 MG TABLET PO SCH (08:46)
[2020-08-07] MEDS: Loratadine 10 MG TABLET PO SCH (08:46)
[2020-08-07 10:09] LABS: Basophils % 0.7 %; Red Cell Distribution Width 22.5 % (11.5-14.5); Segmented Neutrophils % 75.9 %
[2020-08-07 10:10] LABS: Basophils # 0.1 K/mcL (0.0-0.2); Eosinophils # 0.5 K/mcL (0.0-0.6); Eosinophils % 5.1 %; Hematocrit 32.6 % (35.3-44.9); Immature Granulocytes % 0.6 % (0-4); Lymphocytes # 1.4 K/mcL (0.6-4.6); Lymphocytes % 12.7 %; Mean Corpuscular HGB Conc 27.6 g/dL (31.6-35.5); Mean Corpuscular Hemoglobin 22.8 pg (28.0-33.3); Mean Corpuscular Volume 82.5 fL (83.0-100.0); Mean Platelet Volume 9.2 fL (9.4-12.4); Monocytes # 0.5 K/mcL (0.0-1.3); Neutrophils # 8.1 K/mcL (1.6-8.9); Platelet Count 687 K/mcL (140-400); Red Blood Count 3.95 M/mcL (3.82-4.97); White Blood Count 10.6 K/mcL (4.3-11.1)
[2020-08-07 10:26] LABS: BUN/Creatinine Ratio 24 (6-26); Blood Urea Nitrogen 21 mg/dL (6-20); Calcium 9.3 mg/dL (8.6-10.3); Carbon Dioxide 18 mEq/L (23-29); Chloride 105 mEq/L (98-107); Glucose 113 mg/dL (70-105); Osmolality,Calculated 290 (280-300); Potassium 3.5 mEq/L (3.5-5.1); Sodium 138 mEq/L (136-145); eGFR For African Americans > 60 (> 60); eGFR For Non-African Americans > 60 (> 60)
[2020-08-07 12:16] LABS: Hypochromasia Present (Not Present)
[2020-08-07 12:17] LABS: Large Platelets Present (Not Present); Platelet Estimate Normal (Normal)
[2020-08-07] MEDS: *HR* Rivaroxaban 10 MG TABLET PO SCH (17:23)
[2020-08-08] MEDS: *HR* LORazepam 0.5 MG TABLET PO PRN (01:27)
[2020-08-08] MEDS: Meropenem 1,000 MG in 0.9 % Sodium Chloride Mini Bag 100 ML IVPB SCH ×4 (01:27→23:51)
[2020-08-08] MEDS: Folic Acid 1 MG TABLET PO SCH (08:45)
[2020-08-08] MEDS: levETIRAcetam 250 MG TABLET PO SCH ×2 (08:45→21:20)
[2020-08-08] MEDS: Simethicone 80 MG TAB.CHEW PO SCH ×3 (08:46→21:50)
[2020-08-08] MEDS: Loratadine 10 MG TABLET PO SCH (08:46)
[2020-08-08] MEDS: DilTIAZem CD (24hr) 300 MG CAP.ER.24H PO SCH (08:46)
[2020-08-08] MEDS: Insulin LISPRO 300 UNITS/3 ML VIAL SQ SCH ×4 (08:47→21:21)
[2020-08-08 10:18] LABS: BUN/Creatinine Ratio 21 (6-26); Blood Urea Nitrogen 18 mg/dL (6-20); Calcium 9.1 mg/dL (8.6-10.3); Carbon Dioxide 15 mEq/L (23-29); Chloride 108 mEq/L (98-107); Glucose 99 mg/dL (70-105); Osmolality,Calculated 290 (280-300); Sodium 139 mEq/L (136-145); eGFR For African Americans > 60 (> 60); eGFR For Non-African Americans > 60 (> 60)
[2020-08-08 10:31] LABS: Hematocrit 31.8 % (35.3-44.9); Monocytes % 4.9 %
[2020-08-08 10:32] LABS: Basophils # 0.1 K/mcL (0.0-0.2); Basophils % 0.8 %; Eosinophils # 0.6 K/mcL (0.0-0.6); Eosinophils % 5.7 %; Hemoglobin 8.9 g/dL (11.5-15.4); Immature Granulocytes % 0.5 % (0-4); Lymphocytes # 1.3 K/mcL (0.6-4.6); Mean Corpuscular Hemoglobin 23.2 pg (28.0-33.3); Mean Corpuscular Volume 82.8 fL (83.0-100.0); Mean Platelet Volume 9.1 fL (9.4-12.4); Monocytes # 0.5 K/mcL (0.0-1.3); Platelet Count 602 K/mcL (140-400); Red Blood Count 3.84 M/mcL (3.82-4.97); Red Cell Distribution Width 22.8 % (11.5-14.5); Segmented Neutrophils % 76.1 %; White Blood Count 10.5 K/mcL (4.3-11.1)
[2020-08-08 11:04] LABS: Anisocytosis 2+ (Not Present); Hypochromasia Present (Not Present)
[2020-08-08 11:10] LABS: Poikilocytosis 1+ (Not Present)
[2020-08-08 11:19] LABS: Folate > 22.3 ng/mL (3.0-16.0); Vitamin B12 1228 pg/mL (250-1100)
[2020-08-08] MEDS ORDERED: *HR* LORazepam 2 MG/ML VIAL IVP ONE (12:25)
[2020-08-08] MEDS: Gentamicin Oint 15 GM TUBE TP SCH (17:03)
[2020-08-08] MEDS: *HR* Rivaroxaban 10 MG TABLET PO SCH ×2 (17:17→17:27)
[2020-08-08] MEDS: Sennosides/Docusate Sodium TABLET PO SCH ×2 (21:18→21:50)
[2020-08-08] MEDS: QUEtiapine Fumarate 25 MG TABLET PO SCH (21:19)
[2020-08-09 08:47] LABS: Immature Granulocytes % 0.4 % (0-4); Mean Platelet Volume 9.2 fL (9.4-12.4)
[2020-08-09 08:48] LABS: Basophils # 0.1 K/mcL (0.0-0.2); Eosinophils # 0.9 K/mcL (0.0-0.6); Eosinophils % 12.6 %; Hematocrit 33.9 % (35.3-44.9); Hemoglobin 9.2 g/dL (11.5-15.4); Lymphocytes # 1.1 K/mcL (0.6-4.6); Lymphocytes % 15.1 %; Mean Corpuscular HGB Conc 27.1 g/dL (31.6-35.5); Mean Corpuscular Hemoglobin 22.7 pg (28.0-33.3); Mean Corpuscular Volume 83.7 fL (83.0-100.0); Monocytes # 0.4 K/mcL (0.0-1.3); Monocytes % 5.1 %; Neutrophils # 4.7 K/mcL (1.6-8.9); Platelet Count 545 K/mcL (140-400); Red Blood Count 4.05 M/mcL (3.82-4.97); Red Cell Distribution Width 23.2 % (11.5-14.5); Segmented Neutrophils % 65.8 %; White Blood Count 7.2 K/mcL (4.3-11.1)
[2020-08-09] MEDS: Insulin LISPRO 300 UNITS/3 ML VIAL SQ SCH ×4 (08:49→21:39)
[2020-08-09] MEDS: Meropenem 1,000 MG in 0.9 % Sodium Chloride Mini Bag 100 ML IVPB SCH ×3 (08:54→23:25)
[2020-08-09 09:02] LABS: Alanine Aminotransferase 12 Units/L (7-52); Albumin/Globulin Ratio 0.8 (1.1-2.2); Alkaline Phosphatase 115 Units/L (34-104); Aspartate Amino Transferase 13 Units/L (13-39); BUN/Creatinine Ratio 19 (6-26); Bilirubin,Total 0.4 mg/dL (0.3-1.0); Blood Urea Nitrogen 17 mg/dL (6-20); Calcium 9.3 mg/dL (8.6-10.3); Carbon Dioxide 18 mEq/L (23-29); Chloride 109 mEq/L (98-107); Globulin 3.6 g/dL (2.4-3.5); Glucose 105 mg/dL (70-105); Osmolality,Calculated 296 (280-300); Potassium 3.8 mEq/L (3.5-5.1); Sodium 142 mEq/L (136-145); Total Protein 6.6 g/dL (6.4-8.9); eGFR For African Americans > 60 (> 60); eGFR For Non-African Americans > 60 (> 60)
[2020-08-09] MEDS: levETIRAcetam 250 MG TABLET PO SCH ×2 (12:55→21:36)
[2020-08-09] MEDS: DilTIAZem CD (24hr) 300 MG CAP.ER.24H PO SCH (12:55)
[2020-08-09] MEDS: Folic Acid 1 MG TABLET PO SCH (12:56)
[2020-08-09] MEDS: Simethicone 80 MG TAB.CHEW PO SCH ×3 (12:56→21:36)
[2020-08-09] MEDS: Loratadine 10 MG TABLET PO SCH (12:57)
[2020-08-09] MEDS ORDERED: levETIRAcetam 250 MG TABLET PO ONE (14:38)
[2020-08-09] MEDS: *HR* Rivaroxaban 10 MG TABLET PO SCH (17:02)
[2020-08-09] MEDS: Gentamicin Oint 15 GM TUBE TP SCH (17:04)
[2020-08-09] MEDS: QUEtiapine Fumarate 25 MG TABLET PO SCH (21:37)
[2020-08-09] MEDS: Sennosides/Docusate Sodium TABLET PO SCH (21:38)
[2020-08-09] MEDS: *HR* OxyCODONE/APAP 7.5/325 TABLET PO PRN (21:41)
[2020-08-10] MEDS: Insulin LISPRO 300 UNITS/3 ML VIAL SQ SCH ×4 (08:40→20:32)
[2020-08-10] MEDS: Meropenem 1,000 MG in 0.9 % Sodium Chloride Mini Bag 100 ML IVPB SCH ×2 (08:41→16:13)
[2020-08-10] MEDS: DilTIAZem CD (24hr) 300 MG CAP.ER.24H PO SCH (08:42)
[2020-08-10] MEDS: Loratadine 10 MG TABLET PO SCH (08:43)
[2020-08-10] MEDS: Folic Acid 1 MG TABLET PO SCH (08:43)
[2020-08-10] MEDS: levETIRAcetam 250 MG TABLET PO SCH ×2 (08:44→20:32)
[2020-08-10] MEDS: Simethicone 80 MG TAB.CHEW PO SCH ×2 (08:45→20:31)
[2020-08-10 12:14] LABS: Eosinophils # 1.5 K/mcL (0.0-0.6); Hematocrit 30.8 % (35.3-44.9); Hemoglobin 8.9 g/dL (11.5-15.4); Mean Corpuscular HGB Conc 28.9 g/dL (31.6-35.5); Mean Corpuscular Hemoglobin 24.1 pg (28.0-33.3); Mean Corpuscular Volume 83.5 fL (83.0-100.0); Monocytes # 0.4 K/mcL (0.0-1.3); Platelet Count 446 K/mcL (140-400); Red Blood Count 3.69 M/mcL (3.82-4.97); Red Cell Distribution Width 23.2 % (11.5-14.5)
[2020-08-10 12:30] LABS: BUN/Creatinine Ratio 16 (6-26); Blood Urea Nitrogen 16 mg/dL (6-20); Calcium 8.8 mg/dL (8.6-10.3); Carbon Dioxide 21 mEq/L (23-29); Chloride 107 mEq/L (98-107); Glucose 149 mg/dL (70-105); Osmolality,Calculated 288 (280-300); Potassium 4.1 mEq/L (3.5-5.1); Sodium 137 mEq/L (136-145); eGFR For African Americans > 60 (> 60); eGFR For Non-African Americans 59 (> 60)
[2020-08-10 12:37] LABS: Lymphocytes # 1.7 K/mcL (0.6-4.6); Neutrophils # 3.4 K/mcL (1.6-8.9)
[2020-08-10 12:38] LABS: Anisocytosis 2+ (Not Present); Hypochromasia Present (Not Present)
[2020-08-10] MEDS: Gentamicin Oint 15 GM TUBE TP SCH (12:45)
[2020-08-10] MEDS: *HR* Rivaroxaban 10 MG TABLET PO SCH (17:19)
[2020-08-10] MEDS: QUEtiapine Fumarate 25 MG TABLET PO SCH ×2 (20:32→23:12)
[2020-08-10] MEDS: Sennosides/Docusate Sodium TABLET PO SCH (20:32)
[2020-08-11] MEDS: Meropenem 1,000 MG in 0.9 % Sodium Chloride Mini Bag 100 ML IVPB SCH ×4 (00:01→23:43)
[2020-08-11 07:07] LABS: Red Cell Distribution Width 23.7 % (11.5-14.5)
[2020-08-11 07:08] LABS: Hematocrit 28.4 % (35.3-44.9); Hemoglobin 8.1 g/dL (11.5-15.4); Lymphocytes # 1.8 K/mcL (0.6-4.6); Mean Corpuscular HGB Conc 28.5 g/dL (31.6-35.5); Mean Corpuscular Hemoglobin 23.5 pg (28.0-33.3); Mean Corpuscular Volume 82.3 fL (83.0-100.0); Mean Platelet Volume 9.3 fL (9.4-12.4); Platelet Count 368 K/mcL (140-400); Red Blood Count 3.45 M/mcL (3.82-4.97); White Blood Count 5.7 K/mcL (4.3-11.1)
[2020-08-11 07:29] LABS: Calcium 8.5 mg/dL (8.6-10.3); Potassium 4.2 mEq/L (3.5-5.1)
[2020-08-11 08:35] LABS: Anisocytosis 1+ (Not Present); Eosinophils # 0.9 K/mcL (0.0-0.6); Hypochromasia Present (Not Present); Monocytes # 0.5 K/mcL (0.0-1.3); Neutrophils # 2.5 K/mcL (1.6-8.9); Platelet Estimate Normal (Normal)
[2020-08-11] MEDS: Insulin LISPRO 300 UNITS/3 ML VIAL SQ SCH ×4 (08:59→20:35)
[2020-08-11] MEDS: Folic Acid 1 MG TABLET PO SCH (09:00)
[2020-08-11] MEDS: DilTIAZem CD (24hr) 300 MG CAP.ER.24H PO SCH (09:01)
[2020-08-11] MEDS: Loratadine 10 MG TABLET PO SCH (09:02)
[2020-08-11] MEDS: levETIRAcetam 250 MG TABLET PO SCH ×2 (09:02→20:33)
[2020-08-11] MEDS: Simethicone 80 MG TAB.CHEW PO SCH ×2 (09:03→20:33)
[2020-08-11] MEDS: Gentamicin Oint 15 GM TUBE TP SCH (09:03)
[2020-08-11] MEDS: Acetaminophen 325 MG TABLET PO PRN (14:05)
[2020-08-11] MEDS ORDERED: Ringers Solution, Lactated 1,000 ML IVC SCH (15:45)
[2020-08-11] MEDS: *HR* OxyCODONE/APAP 5/325 TABLET PO PRN (16:47)
[2020-08-11] MEDS: *HR* Rivaroxaban 10 MG TABLET PO SCH (16:48)
[2020-08-11] MEDS: QUEtiapine Fumarate 25 MG TABLET PO SCH ×2 (20:33→21:30)
[2020-08-11] MEDS: Sennosides/Docusate Sodium TABLET PO SCH ×2 (20:34→21:28)
[2020-08-12 05:02] LABS: Basophils # 0.1 K/mcL (0.0-0.2); Basophils % 0.9 %; Eosinophils % 16.7 %; Hematocrit 27.1 % (35.3-44.9); Hemoglobin 7.7 g/dL (11.5-15.4); Lymphocytes # 1.4 K/mcL (0.6-4.6); Lymphocytes % 24.3 %; Mean Corpuscular HGB Conc 28.4 g/dL (31.6-35.5); Mean Corpuscular Hemoglobin 23.5 pg (28.0-33.3); Mean Corpuscular Volume 82.9 fL (83.0-100.0); Mean Platelet Volume 9.4 fL (9.4-12.4); Monocytes # 0.4 K/mcL (0.0-1.3); Monocytes % 6.8 %; Neutrophils # 2.9 K/mcL (1.6-8.9); Platelet Count 322 K/mcL (140-400); Red Blood Count 3.27 M/mcL (3.82-4.97); Red Cell Distribution Width 23.8 % (11.5-14.5); Segmented Neutrophils % 50.3 %; White Blood Count 5.8 K/mcL (4.3-11.1)
[2020-08-12 05:17] LABS: Anisocytosis 1+ (Not Present); Calcium 8.4 mg/dL (8.6-10.3); Hypochromasia Present (Not Present); Magnesium 1.7 mg/dL (1.6-2.6); Phosphorous 2.3 mg/dL (2.7-4.5); Platelet Estimate Normal (Normal); Poikilocytosis 1+ (Not Present); Potassium 3.9 mEq/L (3.5-5.1)
[2020-08-12] MEDS: Meropenem 1,000 MG in 0.9 % Sodium Chloride Mini Bag 100 ML IVPB SCH ×3 (08:37→23:48)
[2020-08-12] MEDS: Insulin LISPRO 300 UNITS/3 ML VIAL SQ SCH ×4 (08:39→20:06)
[2020-08-12] MEDS: DilTIAZem CD (24hr) 300 MG CAP.ER.24H PO SCH (08:39)
[2020-08-12] MEDS: Folic Acid 1 MG TABLET PO SCH (08:40)
[2020-08-12] MEDS: levETIRAcetam 250 MG TABLET PO SCH ×2 (08:41→20:13)
[2020-08-12] MEDS: Simethicone 80 MG TAB.CHEW PO SCH ×2 (08:41→20:14)
[2020-08-12] MEDS: Loratadine 10 MG TABLET PO SCH (08:41)
[2020-08-12] MEDS: Gentamicin Oint 15 GM TUBE TP SCH (08:42)
[2020-08-12] MEDS ORDERED: Lidocaine -MPF 1% 5 ML AMPUL INFILT ONE (11:47)
[2020-08-12] MEDS: *HR* OxyCODONE/APAP 5/325 TABLET PO PRN ×2 (12:26→20:19)
[2020-08-12] MEDS ORDERED: Ringers Solution, Lactated 500 ML IVC SCH (15:30)
[2020-08-12] MEDS: *HR* Rivaroxaban 10 MG TABLET PO SCH (17:05)
[2020-08-12] MEDS: Acetaminophen 325 MG TABLET PO PRN (17:08)
[2020-08-12] MEDS: QUEtiapine Fumarate 25 MG TABLET PO SCH (20:13)
[2020-08-12] MEDS: Sennosides/Docusate Sodium TABLET PO SCH (20:14)
[2020-08-13 06:31] LABS: Basophils # 0.1 K/mcL (0.0-0.2); Basophils % 0.9 %; Eosinophils % 18.2 %; Hematocrit 26.8 % (35.3-44.9); Hemoglobin 7.8 g/dL (11.5-15.4); Immature Granulocytes % 0.9 % (0-4); Lymphocytes # 1.3 K/mcL (0.6-4.6); Lymphocytes % 22.9 %; Mean Corpuscular HGB Conc 29.1 g/dL (31.6-35.5); Mean Corpuscular Hemoglobin 24.3 pg (28.0-33.3); Mean Corpuscular Volume 83.5 fL (83.0-100.0); Mean Platelet Volume 9.8 fL (9.4-12.4); Monocytes # 0.5 K/mcL (0.0-1.3); Neutrophils # 2.7 K/mcL (1.6-8.9); Platelet Count 268 K/mcL (140-400); Red Blood Count 3.21 M/mcL (3.82-4.97); Red Cell Distribution Width 23.9 % (11.5-14.5); Segmented Neutrophils % 48.1 %; White Blood Count 5.5 K/mcL (4.3-11.1)
[2020-08-13 06:45] LABS: Calcium 8.4 mg/dL (8.6-10.3); Magnesium 1.8 mg/dL (1.6-2.6); Phosphorous 2.8 mg/dL (2.7-4.5); Potassium 3.9 mEq/L (3.5-5.1)
[2020-08-13 07:02] LABS: Anisocytosis 2+ (Not Present); Hypochromasia Present (Not Present); Platelet Estimate Normal (Normal)
[2020-08-13] MEDS: Insulin LISPRO 300 UNITS/3 ML VIAL SQ SCH ×4 (08:32→20:44)
[2020-08-13] MEDS: levETIRAcetam 250 MG TABLET PO SCH ×2 (08:43→20:47)
[2020-08-13] MEDS: Simethicone 80 MG TAB.CHEW PO SCH ×2 (08:43→20:47)
[2020-08-13] MEDS: Loratadine 10 MG TABLET PO SCH (08:43)
[2020-08-13] MEDS: Folic Acid 1 MG TABLET PO SCH (08:43)
[2020-08-13] MEDS: Meropenem 1,000 MG in 0.9 % Sodium Chloride Mini Bag 100 ML IVPB SCH ×2 (08:44→16:05)
[2020-08-13] MEDS: DilTIAZem CD (24hr) 300 MG CAP.ER.24H PO SCH (08:44)
[2020-08-13] MEDS: Gentamicin Oint 15 GM TUBE TP SCH (08:45)
[2020-08-13] MEDS ORDERED: Hyoscyamine SL 0.125 MG TAB.SUBL SL PRN (12:22)
[2020-08-13] MEDS: *HR* Rivaroxaban 10 MG TABLET PO SCH (16:05)
[2020-08-13] MEDS ORDERED: Ringers Solution, Lactated 1,000 ML IVC SCH (18:00)
[2020-08-13] MEDS: Acetaminophen 325 MG TABLET PO PRN (19:41)
[2020-08-13] MEDS: Sennosides/Docusate Sodium TABLET PO SCH (20:47)
[2020-08-13] MEDS: QUEtiapine Fumarate 25 MG TABLET PO SCH (20:49)
[2020-08-14] MEDS: Meropenem 1,000 MG in 0.9 % Sodium Chloride Mini Bag 100 ML IVPB SCH ×3 (00:09→16:31)
[2020-08-14] MEDS: Insulin LISPRO 300 UNITS/3 ML VIAL SQ SCH ×4 (07:46→21:24)
[2020-08-14 08:14] LABS: Hematocrit 26.7 % (35.3-44.9); Hemoglobin 7.8 g/dL (11.5-15.4); Mean Corpuscular HGB Conc 29.2 g/dL (31.6-35.5); Mean Corpuscular Hemoglobin 24.4 pg (28.0-33.3); Mean Corpuscular Volume 83.4 fL (83.0-100.0); Mean Platelet Volume 9.6 fL (9.4-12.4); Platelet Count 258 K/mcL (140-400); Red Cell Distribution Width 24.4 % (11.5-14.5)
[2020-08-14 08:22] LABS: Calcium 8.5 mg/dL (8.6-10.3); Magnesium 1.8 mg/dL (1.6-2.6); Phosphorous 2.6 mg/dL (2.7-4.5); Potassium 3.8 mEq/L (3.5-5.1)
[2020-08-14 08:36] LABS: Eosinophils # 1.2 K/mcL (0.0-0.6); Lymphocytes # 1.6 K/mcL (0.6-4.6); Monocytes # 0.2 K/mcL (0.0-1.3)
[2020-08-14 08:37] LABS: Anisocytosis 1+ (Not Present); Platelet Estimate Normal (Normal); Reactive Lymphocytes Present (Not Present)
[2020-08-14 08:38] LABS: Hypochromasia Present (Not Present); Polychromasia 1+ (Not Present)
[2020-08-14] MEDS: Simethicone 80 MG TAB.CHEW PO SCH ×2 (08:41→21:25)
[2020-08-14] MEDS: Folic Acid 1 MG TABLET PO SCH (08:42)
[2020-08-14] MEDS: levETIRAcetam 250 MG TABLET PO SCH ×2 (08:42→21:26)
[2020-08-14] MEDS: Loratadine 10 MG TABLET PO SCH (08:43)
[2020-08-14] MEDS: DilTIAZem CD (24hr) 180 MG CAP.ER.24H PO SCH (08:44)
[2020-08-14] MEDS: Gentamicin Oint 15 GM TUBE TP SCH (08:44)
[2020-08-14] MEDS: 0.9 % Sodium Chloride 1,000 ML IVC SCH (08:50)
[2020-08-14] MEDS: Baclofen 10 MG TABLET PO SCH ×2 (13:45→21:25)
[2020-08-14] MEDS: Vancomycin 500 MG in 0.9 % Sodium Chloride Mini Bag 100 ML IVPB SCH (13:45)
[2020-08-14] MEDS: *HR* OxyCODONE/APAP 5/325 TABLET PO PRN (13:45)
[2020-08-14] MEDS: *HR* Rivaroxaban 10 MG TABLET PO SCH (16:31)
[2020-08-14] MEDS: Sennosides/Docusate Sodium TABLET PO SCH (21:25)
[2020-08-14] MEDS: QUEtiapine Fumarate 25 MG TABLET PO SCH (21:25)
[2020-08-15] MEDS: 0.9 % Sodium Chloride 1,000 ML IVC SCH (00:40)
[2020-08-15] MEDS: Meropenem 1,000 MG in 0.9 % Sodium Chloride Mini Bag 100 ML IVPB SCH ×3 (00:40→16:17)
[2020-08-15 06:06] LABS: Hemoglobin 6.8 g/dL (11.5-15.4); Immature Granulocytes % 0.6 % (0-4); Monocytes # 0.5 K/mcL (0.0-1.3); Monocytes % 10.2 %; White Blood Count 4.7 K/mcL (4.3-11.1)
[2020-08-15 06:08] LABS: Basophils % 0.6 %; Eosinophils % 20.6 %; Hematocrit 23.5 % (35.3-44.9); Lymphocytes # 1.2 K/mcL (0.6-4.6); Lymphocytes % 24.6 %; Mean Corpuscular HGB Conc 28.9 g/dL (31.6-35.5); Mean Corpuscular Hemoglobin 24.5 pg (28.0-33.3); Mean Corpuscular Volume 84.5 fL (83.0-100.0); Mean Platelet Volume 9.4 fL (9.4-12.4); Platelet Count 192 K/mcL (140-400); Red Blood Count 2.78 M/mcL (3.82-4.97); Red Cell Distribution Width 24.6 % (11.5-14.5); Segmented Neutrophils % 43.4 %
[2020-08-15 06:20] LABS: BUN/Creatinine Ratio 20 (6-26); Blood Urea Nitrogen 23 mg/dL (6-20); Calcium 7.1 mg/dL (8.6-10.3); Carbon Dioxide 21 mEq/L (23-29); Chloride 115 mEq/L (98-107); Glucose 111 mg/dL (70-105); Magnesium 1.6 mg/dL (1.6-2.6); Osmolality,Calculated 298 (280-300); Phosphorous 2.3 mg/dL (2.7-4.5); Potassium 3.4 mEq/L (3.5-5.1); Sodium 142 mEq/L (136-145); eGFR For African Americans > 60 (> 60); eGFR For Non-African Americans 50 (> 60)
[2020-08-15 06:28] LABS: Anisocytosis 3+ (Not Present); Macrocytosis Present (Not Present); Microcytosis Present (Not Present); Platelet Estimate Normal (Normal)
[2020-08-15] MEDS ORDERED: 0.9 % Sodium Chloride 250 ML IVC SCH (07:30)
[2020-08-15] MEDS: Insulin LISPRO 300 UNITS/3 ML VIAL SQ SCH ×4 (07:44→20:12)
[2020-08-15] MEDS: *HR* OxyCODONE/APAP 5/325 TABLET PO PRN ×2 (08:02→16:16)
[2020-08-15] MEDS: levETIRAcetam 250 MG TABLET PO SCH ×2 (09:55→20:27)
[2020-08-15] MEDS: Baclofen 10 MG TABLET PO SCH ×3 (09:56→20:27)
[2020-08-15] MEDS: Simethicone 80 MG TAB.CHEW PO SCH ×2 (09:56→20:27)
[2020-08-15] MEDS: DilTIAZem CD (24hr) 180 MG CAP.ER.24H PO SCH (09:56)
[2020-08-15] MEDS: Folic Acid 1 MG TABLET PO SCH (09:57)
[2020-08-15] MEDS: Loratadine 10 MG TABLET PO SCH (09:57)
[2020-08-15] MEDS: Vancomycin 500 MG in 0.9 % Sodium Chloride Mini Bag 100 ML IVPB SCH (13:53)
[2020-08-15] MEDS: Gentamicin Oint 15 GM TUBE TP SCH (14:22)
[2020-08-15] MEDS: Acetaminophen 325 MG TABLET PO PRN (18:52)
[2020-08-15 19:38] LABS: Hematocrit 30.1 % (35.3-44.9); Hemoglobin 8.7 g/dL (11.5-15.4)
[2020-08-15] MEDS: QUEtiapine Fumarate 25 MG TABLET PO SCH (20:26)
[2020-08-15] MEDS: Sennosides/Docusate Sodium TABLET PO SCH (20:27)
[2020-08-16] MEDS: Meropenem 1,000 MG in 0.9 % Sodium Chloride Mini Bag 100 ML IVPB SCH ×4 (00:21→23:26)
[2020-08-16 00:42] LABS: Basophils % 0.5 %; Eosinophils # 1.4 K/mcL (0.0-0.6); Eosinophils % 23.7 %; Hematocrit 28.2 % (35.3-44.9); Hemoglobin 8.4 g/dL (11.5-15.4); Immature Granulocytes % 0.5 % (0-4); Lymphocytes # 1.7 K/mcL (0.6-4.6); Lymphocytes % 28.8 %; Mean Corpuscular HGB Conc 29.8 g/dL (31.6-35.5); Mean Corpuscular Hemoglobin 25.3 pg (28.0-33.3); Mean Corpuscular Volume 84.9 fL (83.0-100.0); Mean Platelet Volume 9.9 fL (9.4-12.4); Monocytes # 0.6 K/mcL (0.0-1.3); Monocytes % 9.4 %; Neutrophils # 2.2 K/mcL (1.6-8.9); Platelet Count 196 K/mcL (140-400); Red Blood Count 3.32 M/mcL (3.82-4.97); Red Cell Distribution Width 23.2 % (11.5-14.5); Segmented Neutrophils % 37.1 %; White Blood Count 5.9 K/mcL (4.3-11.1)
[2020-08-16 01:03] LABS: Calcium 8.1 mg/dL (8.6-10.3); Magnesium 1.8 mg/dL (1.6-2.6); Phosphorous 3.6 mg/dL (2.7-4.5); Potassium 4.9 mEq/L (3.5-5.1)
[2020-08-16 01:07] LABS: Anisocytosis 2+ (Not Present); Hypochromasia Present (Not Present)
[2020-08-16 01:08] LABS: Macrocytosis Present (Not Present); Platelet Estimate Normal (Normal); Polychromasia 1+ (Not Present)
[2020-08-16] MEDS: Insulin LISPRO 300 UNITS/3 ML VIAL SQ SCH ×4 (07:37→21:55)
[2020-08-16] MEDS: Loratadine 10 MG TABLET PO SCH (10:14)
[2020-08-16] MEDS: DilTIAZem CD (24hr) 180 MG CAP.ER.24H PO SCH (10:15)
[2020-08-16] MEDS: Simethicone 80 MG TAB.CHEW PO SCH ×2 (10:15→21:54)
[2020-08-16] MEDS: levETIRAcetam 250 MG TABLET PO SCH ×2 (10:15→21:54)
[2020-08-16] MEDS: Baclofen 10 MG TABLET PO SCH ×3 (10:15→21:50)
[2020-08-16] MEDS: Folic Acid 1 MG TABLET PO SCH (10:15)
[2020-08-16] MEDS: Vancomycin 500 MG in 0.9 % Sodium Chloride Mini Bag 100 ML IVPB SCH (13:45)
[2020-08-16] MEDS: Gentamicin Oint 15 GM TUBE TP SCH (16:20)
[2020-08-16] MEDS: Acetaminophen 325 MG TABLET PO PRN (18:39)
[2020-08-16] MEDS: QUEtiapine Fumarate 25 MG TABLET PO SCH (21:54)
[2020-08-16] MEDS: Sennosides/Docusate Sodium TABLET PO SCH (21:55)
[2020-08-17 01:57] LABS: Hematocrit 30.1 % (35.3-44.9); Hemoglobin 8.6 g/dL (11.5-15.4)
[2020-08-17 02:16] LABS: Calcium 8.2 mg/dL (8.6-10.3); Magnesium 1.7 mg/dL (1.6-2.6); Phosphorous 2.8 mg/dL (2.7-4.5); Potassium 4.1 mEq/L (3.5-5.1)
[2020-08-17] MEDS: Insulin LISPRO 300 UNITS/3 ML VIAL SQ SCH ×4 (08:48→23:07)
[2020-08-17] MEDS: Folic Acid 1 MG TABLET PO SCH (09:04)
[2020-08-17] MEDS: DilTIAZem CD (24hr) 180 MG CAP.ER.24H PO SCH (09:04)
[2020-08-17] MEDS: Loratadine 10 MG TABLET PO SCH (09:04)
[2020-08-17] MEDS: Baclofen 10 MG TABLET PO SCH ×3 (09:04→23:05)
[2020-08-17] MEDS: levETIRAcetam 250 MG TABLET PO SCH ×2 (09:04→23:06)
[2020-08-17] MEDS: Gentamicin Oint 15 GM TUBE TP SCH (09:06)
[2020-08-17] MEDS: Meropenem 1,000 MG in 0.9 % Sodium Chloride Mini Bag 100 ML IVPB SCH ×3 (09:06→23:20)
[2020-08-17] MEDS: Simethicone 80 MG TAB.CHEW PO SCH ×2 (09:06→23:05)
[2020-08-17] MEDS: Vancomycin 500 MG in 0.9 % Sodium Chloride Mini Bag 100 ML IVPB SCH (14:05)
[2020-08-17] MEDS: *HR* Rivaroxaban 10 MG TABLET PO SCH ×2 (18:26→18:31)
[2020-08-17] MEDS: Sennosides/Docusate Sodium TABLET PO SCH (23:05)
[2020-08-17] MEDS: QUEtiapine Fumarate 25 MG TABLET PO SCH (23:06)
[2020-08-18] MEDS: Insulin LISPRO 300 UNITS/3 ML VIAL SQ SCH ×2 (09:09→11:26)
[2020-08-18] MEDS: Meropenem 1,000 MG in 0.9 % Sodium Chloride Mini Bag 100 ML IVPB SCH (09:26)
[2020-08-18 09:44] LABS: ABG Base Excess -2 mEq/L (-2 to 3); ABG HCO3 22 mEq/L (21-27); ABG Oxygen Saturation 98 % (95-98); ABG PCO2 34 mmHg (35-45); ABG PH 7.42 pH Units (7.32-7.45); ABG PO2 108 mmHg (85-104); ABG TCO2 23 mEq/L (20-26)
[2020-08-18] MEDS: Loratadine 10 MG TABLET PO SCH (09:44)
[2020-08-18] MEDS: Baclofen 10 MG TABLET PO SCH (09:44)
[2020-08-18] MEDS: DilTIAZem CD (24hr) 180 MG CAP.ER.24H PO SCH (09:45)
[2020-08-18] MEDS: levETIRAcetam 250 MG TABLET PO SCH (09:45)
[2020-08-18] MEDS: Folic Acid 1 MG TABLET PO SCH (09:45)
[2020-08-18] MEDS: Simethicone 80 MG TAB.CHEW PO SCH (09:45)
[2020-08-18] MEDS: Gentamicin Oint 15 GM TUBE TP SCH (09:46)
[2020-08-18 10:38] LABS: Hematocrit 29.5 % (35.3-44.9); Hemoglobin 8.4 g/dL (11.5-15.4)
[2020-08-18 11:39] VITALS: BP 121/64
== END 2020-08-18 15:31 | DRG 466 ==
LOC: 3ANU 07:12 → EMEROOARM 07:12 → SUATTDRO 13:38 → 3ANU 13:43 → SUATTDRO 07-29 10:55
PROVIDERS: ADMIT Internal Medicine; ATTEND Internal Medicine

== ENCOUNTER 2021-12-07 10:33 | Inpatient (IN) ==
[2021-12-07 11:42] LABS: Basophils # 0.1 K/mcL (0.0-0.2); Basophils % 0.6 %; Eosinophils # 0.6 K/mcL (0.0-0.6); Eosinophils % 3.6 %; Hematocrit 33.5 % (35.3-44.9); Hemoglobin 10.5 g/dL (11.5-15.4); Immature Granulocytes % 0.8 % (0-4); Lymphocytes # 2.9 K/mcL (0.6-4.6); Mean Corpuscular HGB Conc 31.3 g/dL (31.6-35.5); Mean Corpuscular Hemoglobin 28.4 pg (28.0-33.3); Mean Corpuscular Volume 90.5 fL (83.0-100.0); Mean Platelet Volume 8.6 fL (9.4-12.4); Monocytes # 0.9 K/mcL (0.0-1.3); Monocytes % 5.1 %; Neutrophils # 12.3 K/mcL (1.6-8.9); Platelet Count 679 K/mcL (140-400); Red Cell Distribution Width 14.5 % (11.5-14.5); Segmented Neutrophils % 72.9 %; White Blood Count 16.8 K/mcL (4.3-11.1)
[2021-12-07 11:50] LABS: INR 1.5; Prothrombin Time 16.7 Seconds (9.4-12.1)
[2021-12-07 11:53] LABS: Activated Partial Thrombo Time 38.7 Seconds (26.0-36.0)
[2021-12-07 12:07] LABS: Alanine Aminotransferase 11 Units/L (7-52); Albumin 3.3 g/dL (3.5-5.7); Albumin/Globulin Ratio 0.8 (1.1-2.2); Alkaline Phosphatase 125 Units/L (34-104); Aspartate Amino Transferase 8 Units/L (13-39); BUN/Creatinine Ratio 25 (6-26); Bilirubin,Indirect 0.2 mg/dL (0.0-1.0); Bilirubin,Total 0.2 mg/dL (0.3-1.0); Blood Urea Nitrogen 46 mg/dL (6-20); Calcium 9.1 mg/dL (8.6-10.3); Carbon Dioxide 24 mEq/L (23-29); Chloride 98 mEq/L (98-107); Globulin 4.3 g/dL (2.4-3.5); Glucose 183 mg/dL (70-105); Lipase 63 Units/L (11-82); Osmolality,Calculated 297 (280-300); Potassium 3.8 mEq/L (3.5-5.1); Sodium 135 mEq/L (136-145); Total Protein 7.6 g/dL (6.4-8.9); Troponin I < 0.03 ng/mL (< 0.04); eGFR For African Americans 34 (> 60); eGFR For Non-African Americans 28 (> 60)
[2021-12-07 12:27] LABS: Bacteria,Urine Few per hpf (None-Few); Bilirubin,Urine Negative (Negative); Blood,Urine Small (Negative); Clarity,Urine Turbid (Clear); Color,Urine Light-Yellow (Yellow); Glucose,Urine (UA) Normal (Normal); Ketones,Urine Negative (Negative); Leukocyte Esterase,Urine Large (Negative); Mucus,Urine Few per lpf (None-Few); Nitrite,Urine Negative (Negative); Protein,Urine 50 mg/dL (Neg-Trace); RBC,Urine 15-30 per hpf (0-3); Renal Epithelial Cells,Urine Few per hpf (None-Few); Specific Gravity,Urine 1.016 (1.010-1.025); Squamous Epithelial Cell,Urine Moderate per hpf (None-Few); Transitional Epi Cells,Urine Few per hpf (None-Few); Urobilinogen,Urine Normal (Normal); WBC,Urine TNTC per hpf (0-3)
[2021-12-07] MEDS ORDERED: 0.9 % Sodium Chloride 1,000 ML IV ONE (12:34)
[2021-12-07] MEDS ORDERED: Piperacillin/Tazobactam 3.375 GM in 0.9 % Sodium Chloride Mini Bag 100 ML IVPB ONE (12:34)
[2021-12-07 13:00] LABS: Influenza A PCR Negative (Negative); Influenza B PCR Negative (Negative); Resp. Syncytial Virus PCR Negative (Negative)
[2021-12-07] MEDS ORDERED: Vancomycin 1,500 MG/265 ML IV.SOLN IVPB ONE (13:00)
[2021-12-07 13:01] LABS: SARS-CoV-2 by PCR (In House) Negative (Negative)
[2021-12-07] MEDS ORDERED: Naloxone 0.4 MG/ML INJ IVP PRN (13:45)
[2021-12-07] MEDS ORDERED: D5% in Water 1,000 ML IVC PRN (13:55)
[2021-12-07] MEDS ORDERED: *HR* Dextrose 50 % in Water (Syg) 50 ML SYRINGE IVP PRN (13:55)
[2021-12-07] MEDS ORDERED: Dextrose 4 GM Chewable Tablets PO PRN ×2 (13:55)
[2021-12-07] MEDS: Insulin LISPRO 300 UNITS/3 ML VIAL SUBQ SCH ×2 (15:56→21:25)
[2021-12-07] MEDS ORDERED: Mag Hydrox/Al Hydrox/Simeth 30 ML UDC PO PRN (16:16)
[2021-12-07] MEDS ORDERED: Sennosides/Docusate Sodium TABLET PO PRN (16:16)
[2021-12-07] MEDS ORDERED: Simethicone 80 MG TAB.CHEW PO PRN (16:16)
[2021-12-07] MEDS ORDERED: Ondansetron ODT 4 MG TAB.RAPDIS PO PRN (16:49)
[2021-12-07] MEDS ORDERED: Gentamicin 80 MG/2 ML VIAL IM SCH (17:00)
[2021-12-07] MEDS ORDERED: 0.9 % Sodium Chloride 1,000 ML IVC SCH (18:15)
[2021-12-07] MEDS: levETIRAcetam 250 MG TABLET PO SCH (21:12)
[2021-12-07] MEDS: hydrOXYzine pamoate 25 MG CAPSULE PO SCH (21:12)
[2021-12-07] MEDS: Piperacillin/Tazobactam 3.375 GM in 0.9 % Sodium Chloride Mini Bag 100 ML IVPB SCH (21:12)
[2021-12-07] MEDS: Baclofen 10 MG TABLET PO SCH (21:12)
[2021-12-07] MEDS: Furosemide 40 MG TABLET PO SCH (21:25)
[2021-12-07] MEDS: *HR* OxyCODONE/APAP 7.5/325 TABLET PO PRN (21:36)
[2021-12-08] MEDS: Piperacillin/Tazobactam 3.375 GM in 0.9 % Sodium Chloride Mini Bag 100 ML IVPB SCH ×3 (04:15→21:29)
[2021-12-08] MEDS: Insulin LISPRO 300 UNITS/3 ML VIAL SUBQ SCH ×4 (08:37→21:31)
[2021-12-08] MEDS: DilTIAZem CD (24hr) 240 MG CAP.ER.24H PO SCH (08:39)
[2021-12-08] MEDS: Baclofen 10 MG TABLET PO SCH ×3 (08:39→21:28)
[2021-12-08] MEDS: Cholecalciferol (D-3) 1,000 UNIT (25MCG) TABLET PO SCH (08:39)
[2021-12-08] MEDS: levETIRAcetam 250 MG TABLET PO SCH ×2 (08:40→21:27)
[2021-12-08] MEDS: *HR* Rivaroxaban 15 MG TABLET PO SCH (08:40)
[2021-12-08] MEDS: Furosemide 40 MG TABLET PO SCH ×2 (08:40→17:19)
[2021-12-08] MEDS: Gentamicin Oint 15 GM TUBE TP SCH (08:41)
[2021-12-08] MEDS: *HR* OxyCODONE/APAP 7.5/325 TABLET PO PRN ×2 (08:50→21:33)
[2021-12-08 08:51] LABS: Calcium 8.8 mg/dL (8.6-10.3); Potassium 4.2 mEq/L (3.5-5.1)
[2021-12-08] MEDS ORDERED: 0.9 % Sodium Chloride 1,000 ML IVC SCH (14:00)
[2021-12-08 15:18] LABS: Basophils # 0.1 K/mcL (0.0-0.2); Basophils % 1.1 %; Eosinophils # 0.6 K/mcL (0.0-0.6); Eosinophils % 5.7 %; Hematocrit 30.9 % (35.3-44.9); Hemoglobin 9.4 g/dL (11.5-15.4); Immature Granulocytes % 0.7 % (0-4); Lymphocytes # 2.5 K/mcL (0.6-4.6); Lymphocytes % 22.5 %; Mean Corpuscular HGB Conc 30.4 g/dL (31.6-35.5); Mean Corpuscular Hemoglobin 27.8 pg (28.0-33.3); Mean Corpuscular Volume 91.4 fL (83.0-100.0); Mean Platelet Volume 8.5 fL (9.4-12.4); Monocytes # 0.5 K/mcL (0.0-1.3); Monocytes % 4.8 %; Neutrophils # 7.1 K/mcL (1.6-8.9); Platelet Count 614 K/mcL (140-400); Red Blood Count 3.38 M/mcL (3.82-4.97); Red Cell Distribution Width 14.6 % (11.5-14.5); Segmented Neutrophils % 65.2 %; White Blood Count 10.9 K/mcL (4.3-11.1)
[2021-12-08] MEDS: hydrOXYzine pamoate 25 MG CAPSULE PO SCH (21:29)
[2021-12-09] MEDS: Piperacillin/Tazobactam 3.375 GM in 0.9 % Sodium Chloride Mini Bag 100 ML IVPB SCH ×3 (06:49→21:13)
[2021-12-09] MEDS: Insulin LISPRO 300 UNITS/3 ML VIAL SUBQ SCH ×4 (07:59→20:56)
[2021-12-09] MEDS: Cholecalciferol (D-3) 1,000 UNIT (25MCG) TABLET PO SCH (08:59)
[2021-12-09] MEDS: Baclofen 10 MG TABLET PO SCH ×3 (09:00→21:15)
[2021-12-09] MEDS: DilTIAZem CD (24hr) 240 MG CAP.ER.24H PO SCH (09:00)
[2021-12-09] MEDS: levETIRAcetam 250 MG TABLET PO SCH ×2 (09:00→21:15)
[2021-12-09] MEDS: *HR* Rivaroxaban 15 MG TABLET PO SCH (09:00)
[2021-12-09] MEDS: Furosemide 40 MG TABLET PO SCH ×2 (09:00→17:26)
[2021-12-09] MEDS: *HR* OxyCODONE/APAP 7.5/325 TABLET PO PRN ×2 (09:11→21:25)
[2021-12-09] MEDS: Gentamicin Oint 15 GM TUBE TP SCH (09:12)
[2021-12-09 11:50] LABS: Basophils # 0.1 K/mcL (0.0-0.2); Eosinophils # 0.6 K/mcL (0.0-0.6); Eosinophils % 4.6 %; Hematocrit 31.5 % (35.3-44.9); Hemoglobin 9.8 g/dL (11.5-15.4); Immature Granulocytes % 0.6 % (0-4); Lymphocytes # 2.9 K/mcL (0.6-4.6); Lymphocytes % 23.3 %; Mean Corpuscular HGB Conc 31.1 g/dL (31.6-35.5); Mean Corpuscular Hemoglobin 28.1 pg (28.0-33.3); Mean Corpuscular Volume 90.3 fL (83.0-100.0); Mean Platelet Volume 8.6 fL (9.4-12.4); Monocytes # 0.6 K/mcL (0.0-1.3); Monocytes % 5.1 %; Platelet Count 621 K/mcL (140-400); Red Blood Count 3.49 M/mcL (3.82-4.97); Red Cell Distribution Width 14.5 % (11.5-14.5); Segmented Neutrophils % 65.4 %; White Blood Count 12.2 K/mcL (4.3-11.1)
[2021-12-09 12:10] LABS: Potassium 3.7 mEq/L (3.5-5.1)
[2021-12-09] MEDS: hydrOXYzine pamoate 25 MG CAPSULE PO SCH (21:15)
[2021-12-10] MEDS: Piperacillin/Tazobactam 3.375 GM in 0.9 % Sodium Chloride Mini Bag 100 ML IVPB SCH ×3 (04:38→20:39)
[2021-12-10 06:49] LABS: Basophils # 0.1 K/mcL (0.0-0.2); Basophils % 1.2 %; Eosinophils # 0.5 K/mcL (0.0-0.6); Eosinophils % 4.2 %; Hematocrit 31.6 % (35.3-44.9); Immature Granulocytes % 0.6 % (0-4); Lymphocytes % 27.8 %; Mean Corpuscular HGB Conc 31.6 g/dL (31.6-35.5); Mean Corpuscular Hemoglobin 28.6 pg (28.0-33.3); Mean Corpuscular Volume 90.3 fL (83.0-100.0); Mean Platelet Volume 8.6 fL (9.4-12.4); Monocytes # 0.5 K/mcL (0.0-1.3); Monocytes % 4.4 %; Neutrophils # 6.7 K/mcL (1.6-8.9); Platelet Count 564 K/mcL (140-400); Red Cell Distribution Width 14.5 % (11.5-14.5); Segmented Neutrophils % 61.8 %; White Blood Count 10.8 K/mcL (4.3-11.1)
[2021-12-10 07:22] LABS: Calcium 9.1 mg/dL (8.6-10.3); Potassium 3.7 mEq/L (3.5-5.1)
[2021-12-10] MEDS: Cholecalciferol (D-3) 1,000 UNIT (25MCG) TABLET PO SCH (08:15)
[2021-12-10] MEDS: Furosemide 40 MG TABLET PO SCH (08:16)
[2021-12-10] MEDS: DilTIAZem CD (24hr) 240 MG CAP.ER.24H PO SCH (08:16)
[2021-12-10] MEDS: levETIRAcetam 250 MG TABLET PO SCH ×2 (08:17→20:37)
[2021-12-10] MEDS: Gentamicin Oint 15 GM TUBE TP SCH (08:17)
[2021-12-10] MEDS: Baclofen 10 MG TABLET PO SCH ×3 (08:17→20:38)
[2021-12-10] MEDS: *HR* Rivaroxaban 15 MG TABLET PO SCH (08:17)
[2021-12-10] MEDS: Insulin LISPRO 300 UNITS/3 ML VIAL SUBQ SCH ×4 (08:18→20:43)
[2021-12-10] MEDS ORDERED: 0.9 % Sodium Chloride 500 ML IVC ONE (08:34)
[2021-12-10] MEDS ORDERED: 0.9 % Sodium Chloride 1,000 ML IVC SCH (08:45)
[2021-12-10] MEDS: hydrOXYzine pamoate 25 MG CAPSULE PO SCH (20:38)
[2021-12-10] MEDS: *HR* OxyCODONE/APAP 7.5/325 TABLET PO PRN (23:29)
[2021-12-11] MEDS: Piperacillin/Tazobactam 3.375 GM in 0.9 % Sodium Chloride Mini Bag 100 ML IVPB SCH ×3 (03:40→20:57)
[2021-12-11] MEDS: Insulin LISPRO 300 UNITS/3 ML VIAL SUBQ SCH ×4 (09:13→21:01)
[2021-12-11] MEDS: Cholecalciferol (D-3) 1,000 UNIT (25MCG) TABLET PO SCH (09:36)
[2021-12-11] MEDS: Baclofen 10 MG TABLET PO SCH ×3 (09:36→20:58)
[2021-12-11] MEDS: levETIRAcetam 250 MG TABLET PO SCH ×2 (09:36→20:58)
[2021-12-11] MEDS: DilTIAZem CD (24hr) 240 MG CAP.ER.24H PO SCH (09:37)
[2021-12-11] MEDS: *HR* Rivaroxaban 15 MG TABLET PO SCH (09:37)
[2021-12-11] MEDS: *HR* OxyCODONE/APAP 7.5/325 TABLET PO PRN ×2 (09:37→20:58)
[2021-12-11 10:51] LABS: Basophils # 0.2 K/mcL (0.0-0.2); Basophils % 1.3 %; Eosinophils # 0.6 K/mcL (0.0-0.6); Hematocrit 31.8 % (35.3-44.9); Hemoglobin 9.9 g/dL (11.5-15.4); Immature Granulocytes % 0.7 % (0-4); Lymphocytes # 3.7 K/mcL (0.6-4.6); Lymphocytes % 30.6 %; Mean Corpuscular HGB Conc 31.1 g/dL (31.6-35.5); Mean Corpuscular Hemoglobin 28.5 pg (28.0-33.3); Mean Corpuscular Volume 91.6 fL (83.0-100.0); Mean Platelet Volume 8.8 fL (9.4-12.4); Monocytes # 0.5 K/mcL (0.0-1.3); Monocytes % 4.3 %; Platelet Count 619 K/mcL (140-400); Red Blood Count 3.47 M/mcL (3.82-4.97); Red Cell Distribution Width 14.6 % (11.5-14.5); Segmented Neutrophils % 58.1 %
[2021-12-11 11:11] LABS: Potassium 3.7 mEq/L (3.5-5.1)
[2021-12-11] MEDS: Gentamicin Oint 15 GM TUBE TP SCH (12:44)
[2021-12-11] MEDS: hydrOXYzine pamoate 25 MG CAPSULE PO SCH (20:59)
[2021-12-12] MEDS: Piperacillin/Tazobactam 3.375 GM in 0.9 % Sodium Chloride Mini Bag 100 ML IVPB SCH ×2 (04:21→14:14)
[2021-12-12] MEDS: Insulin LISPRO 300 UNITS/3 ML VIAL SUBQ SCH ×4 (07:36→21:29)
[2021-12-12] MEDS: Cholecalciferol (D-3) 1,000 UNIT (25MCG) TABLET PO SCH (09:13)
[2021-12-12] MEDS: levETIRAcetam 250 MG TABLET PO SCH ×2 (09:13→21:28)
[2021-12-12] MEDS: *HR* Rivaroxaban 15 MG TABLET PO SCH (09:14)
[2021-12-12] MEDS: DilTIAZem CD (24hr) 240 MG CAP.ER.24H PO SCH (09:14)
[2021-12-12] MEDS: Baclofen 10 MG TABLET PO SCH ×3 (09:14→21:29)
[2021-12-12] MEDS: *HR* OxyCODONE/APAP 7.5/325 TABLET PO PRN ×2 (09:22→23:16)
[2021-12-12 09:49] LABS: Basophils # 0.2 K/mcL (0.0-0.2); Basophils % 1.2 %; Eosinophils # 0.6 K/mcL (0.0-0.6); Eosinophils % 4.1 %; Hematocrit 31.5 % (35.3-44.9); Hemoglobin 9.6 g/dL (11.5-15.4); Immature Granulocytes % 0.5 % (0-4); Lymphocytes # 3.8 K/mcL (0.6-4.6); Lymphocytes % 26.8 %; Mean Corpuscular HGB Conc 30.5 g/dL (31.6-35.5); Mean Corpuscular Volume 91.8 fL (83.0-100.0); Monocytes # 0.6 K/mcL (0.0-1.3); Monocytes % 4.3 %; Neutrophils # 8.8 K/mcL (1.6-8.9); Platelet Count 580 K/mcL (140-400); Red Blood Count 3.43 M/mcL (3.82-4.97); Red Cell Distribution Width 14.5 % (11.5-14.5); Segmented Neutrophils % 63.1 %
[2021-12-12 11:08] LABS: Potassium 3.8 mEq/L (3.5-5.1)
[2021-12-12] MEDS: Gentamicin Oint 15 GM TUBE TP SCH (14:07)
[2021-12-12] MEDS: hydrOXYzine pamoate 25 MG CAPSULE PO SCH (23:16)
[2021-12-13 05:37] LABS: Basophils # 0.1 K/mcL (0.0-0.2); Basophils % 1.1 %; Eosinophils # 0.5 K/mcL (0.0-0.6); Eosinophils % 3.9 %; Hematocrit 32.6 % (35.3-44.9); Immature Granulocytes % 0.6 % (0-4); Lymphocytes # 3.6 K/mcL (0.6-4.6); Lymphocytes % 28.1 %; Mean Corpuscular HGB Conc 30.7 g/dL (31.6-35.5); Mean Corpuscular Hemoglobin 27.9 pg (28.0-33.3); Mean Corpuscular Volume 91.1 fL (83.0-100.0); Mean Platelet Volume 8.7 fL (9.4-12.4); Monocytes # 0.6 K/mcL (0.0-1.3); Monocytes % 4.8 %; Neutrophils # 7.8 K/mcL (1.6-8.9); Platelet Count 567 K/mcL (140-400); Red Blood Count 3.58 M/mcL (3.82-4.97); Red Cell Distribution Width 14.6 % (11.5-14.5); Segmented Neutrophils % 61.5 %; White Blood Count 12.7 K/mcL (4.3-11.1)
[2021-12-13 06:01] LABS: Calcium 9.4 mg/dL (8.6-10.3); Potassium 4.2 mEq/L (3.5-5.1)
[2021-12-13] MEDS ORDERED: 0.9 % Sodium Chloride 1,000 ML IVC ONE (08:15)
[2021-12-13] MEDS: Insulin LISPRO 300 UNITS/3 ML VIAL SUBQ SCH ×4 (09:32→21:53)
[2021-12-13] MEDS: 0.9 % Sodium Chloride 1,000 ML IVC SCH ×2 (09:54→20:37)
[2021-12-13] MEDS: Cholecalciferol (D-3) 1,000 UNIT (25MCG) TABLET PO SCH (09:54)
[2021-12-13] MEDS: levETIRAcetam 250 MG TABLET PO SCH ×2 (09:55→20:39)
[2021-12-13] MEDS: DilTIAZem CD (24hr) 240 MG CAP.ER.24H PO SCH (09:55)
[2021-12-13] MEDS: Baclofen 10 MG TABLET PO SCH ×3 (09:55→20:39)
[2021-12-13] MEDS: *HR* Rivaroxaban 15 MG TABLET PO SCH (09:56)
[2021-12-13] MEDS: *HR* OxyCODONE/APAP 7.5/325 TABLET PO PRN ×2 (10:02→23:08)
[2021-12-13] MEDS: Gentamicin Oint 15 GM TUBE TP SCH (12:32)
[2021-12-13] MEDS: hydrOXYzine pamoate 25 MG CAPSULE PO SCH (23:08)
[2021-12-14] MEDS: 0.9 % Sodium Chloride 1,000 ML IVC SCH ×2 (03:47→18:02)
[2021-12-14 05:59] LABS: Hematocrit 31.6 % (35.3-44.9); Hemoglobin 9.7 g/dL (11.5-15.4); Mean Corpuscular HGB Conc 30.7 g/dL (31.6-35.5); Mean Corpuscular Hemoglobin 28.2 pg (28.0-33.3); Mean Corpuscular Volume 91.9 fL (83.0-100.0); Mean Platelet Volume 9.1 fL (9.4-12.4); Platelet Count 512 K/mcL (140-400); Red Blood Count 3.44 M/mcL (3.82-4.97); Red Cell Distribution Width 15.1 % (11.5-14.5)
[2021-12-14 06:45] LABS: Calcium 9.2 mg/dL (8.6-10.3); Potassium 4.4 mEq/L (3.5-5.1)
[2021-12-14] MEDS: levETIRAcetam 250 MG TABLET PO SCH ×2 (09:04→20:54)
[2021-12-14] MEDS: *HR* Rivaroxaban 15 MG TABLET PO SCH (09:04)
[2021-12-14] MEDS: DilTIAZem CD (24hr) 240 MG CAP.ER.24H PO SCH (09:05)
[2021-12-14] MEDS: Baclofen 10 MG TABLET PO SCH ×3 (09:05→20:53)
[2021-12-14] MEDS: Cholecalciferol (D-3) 1,000 UNIT (25MCG) TABLET PO SCH (09:05)
[2021-12-14] MEDS: Insulin LISPRO 300 UNITS/3 ML VIAL SUBQ SCH ×4 (09:10→20:49)
[2021-12-14 14:13] LABS: Uric Acid 4.9 mg/dL (2.3-7.6)
[2021-12-14 14:35] LABS: Complement C3 175 mg/dL (87-200)
[2021-12-14] MEDS: Gentamicin Oint 15 GM TUBE TP SCH (14:45)
[2021-12-14] MEDS: Acetaminophen 325 MG TABLET PO PRN (18:02)
[2021-12-14 19:05] LABS: Sodium, Urine 69.7 mEq/L
[2021-12-14 19:09] LABS: Bilirubin,Urine Negative (Negative); Blood,Urine Trace (Negative); Clarity,Urine Clear (Clear); Color,Urine Colorless (Yellow); Glucose,Urine (UA) Normal (Normal); Ketones,Urine Negative (Negative); Leukocyte Esterase,Urine Small (Negative); Mucus,Urine Few per lpf (None-Few); Nitrite,Urine Negative (Negative); Protein,Urine Negative (Neg-Trace); RBC,Urine 0-3 per hpf (0-3); Specific Gravity,Urine 1.012 (1.010-1.025); Squamous Epithelial Cell,Urine Few per hpf (None-Few); Urobilinogen,Urine Normal (Normal)
[2021-12-14] MEDS: hydrOXYzine pamoate 25 MG CAPSULE PO SCH (20:54)
[2021-12-14] MEDS: *HR* OxyCODONE/APAP 7.5/325 TABLET PO PRN (23:51)
[2021-12-15] MEDS: 0.9 % Sodium Chloride 1,000 ML IVC SCH (04:38)
[2021-12-15 06:58] LABS: Hematocrit 30.4 % (35.3-44.9); Hemoglobin 9.6 g/dL (11.5-15.4); Mean Corpuscular HGB Conc 31.6 g/dL (31.6-35.5); Mean Corpuscular Hemoglobin 28.5 pg (28.0-33.3); Mean Corpuscular Volume 90.2 fL (83.0-100.0); Mean Platelet Volume 9.3 fL (9.4-12.4); Platelet Count 449 K/mcL (140-400); Red Blood Count 3.37 M/mcL (3.82-4.97); Red Cell Distribution Width 14.9 % (11.5-14.5); White Blood Count 10.7 K/mcL (4.3-11.1)
[2021-12-15 07:09] LABS: Calcium 9.1 mg/dL (8.6-10.3)
[2021-12-15] MEDS: Insulin LISPRO 300 UNITS/3 ML VIAL SUBQ SCH ×4 (08:30→21:57)
[2021-12-15] MEDS: Cholecalciferol (D-3) 1,000 UNIT (25MCG) TABLET PO SCH (12:11)
[2021-12-15] MEDS: DilTIAZem CD (24hr) 240 MG CAP.ER.24H PO SCH (12:11)
[2021-12-15] MEDS: Gentamicin Oint 15 GM TUBE TP SCH (12:12)
[2021-12-15] MEDS: levETIRAcetam 250 MG TABLET PO SCH ×2 (12:12→21:51)
[2021-12-15] MEDS: *HR* OxyCODONE/APAP 7.5/325 TABLET PO PRN ×2 (12:13→21:56)
[2021-12-15] MEDS: *HR* Rivaroxaban 15 MG TABLET PO SCH (12:20)
[2021-12-15] MEDS: Baclofen 10 MG TABLET PO SCH ×2 (12:20→21:51)
[2021-12-15] MEDS: hydrOXYzine pamoate 25 MG CAPSULE PO SCH (21:51)
[2021-12-15] MEDS: Loratadine 10 MG TABLET PO SCH (21:53)
[2021-12-16 03:54] LABS: Hematocrit 31.9 % (35.3-44.9); Hemoglobin 9.9 g/dL (11.5-15.4); Mean Corpuscular Volume 90.4 fL (83.0-100.0); Mean Platelet Volume 9.5 fL (9.4-12.4); Platelet Count 424 K/mcL (140-400); Red Blood Count 3.53 M/mcL (3.82-4.97); Red Cell Distribution Width 15.3 % (11.5-14.5); White Blood Count 12.1 K/mcL (4.3-11.1)
[2021-12-16 04:03] LABS: Calcium 9.1 mg/dL (8.6-10.3); Potassium 4.5 mEq/L (3.5-5.1)
[2021-12-16 08:09] VITALS: O2SAT 95
[2021-12-16] MEDS: *HR* Rivaroxaban 15 MG TABLET PO SCH (09:13)
[2021-12-16] MEDS: Cholecalciferol (D-3) 1,000 UNIT (25MCG) TABLET PO SCH (09:13)
[2021-12-16] MEDS: levETIRAcetam 250 MG TABLET PO SCH (09:13)
[2021-12-16] MEDS: Baclofen 10 MG TABLET PO SCH (09:13)
[2021-12-16] MEDS: DilTIAZem CD (24hr) 240 MG CAP.ER.24H PO SCH (09:13)
[2021-12-16] MEDS: Loratadine 10 MG TABLET PO SCH (09:13)
[2021-12-16] MEDS: Insulin LISPRO 300 UNITS/3 ML VIAL SUBQ SCH ×2 (09:14→13:10)
[2021-12-16] MEDS: *HR* OxyCODONE/APAP 7.5/325 TABLET PO PRN (09:25)
[2021-12-16 12:15] VITALS: BP 115/73; PULSE 86; TEMP 98
[2021-12-16 12:24] LABS: Influenza A PCR Negative (Negative); Influenza B PCR Negative (Negative); Resp. Syncytial Virus PCR Negative (Negative)
[2021-12-16 12:29] LABS: SARS-CoV-2 by PCR (In House) Negative (Negative)
[2021-12-16] MEDS: Acetaminophen 325 MG TABLET PO PRN (13:19)
[2021-12-16 15:05] LABS: ANA IgG by ELISA NONE DETECTED (None Detected)
[2021-12-16] MEDS: Gentamicin Oint 15 GM TUBE TP SCH (15:08)
== END 2021-12-16 16:07 | DRG 466 ==
LOC: 3ANU 10:33 → EMEROOARM 10:33 → SUATTDRO 13:48 → 3ANU 14:51
PROVIDERS: ADMIT Family Medicine; ATTEND Family Medicine